=== PATIENT | female | born 1935 | race Caucasian/White ===

== ENCOUNTER 2018-03-25 11:07 | Emergency (ER) | payer MEDICARE, OTHER ==
[~2018-03-25] VITALS: Ht 160 cm; Wt 44.9 kg
--- NOTE | 2018-03-25 13:40 | Diagnostic Imaging Report ---
PROCEDURE:SACRUM \T\ COCCYX TECHNIQUE:AP and lateral images obtained INDICATION:Hip and tailbone pain, fall COMPARISON:None. FINDINGS: The bones are diffusely demineralized. There are pedicle screws and vertical stabilizing bars in the lower lumbar spine, incompletely imaged. The visualized portions extend from L3-S1. There are artificial disc spacers at L2-3, L3-4, and possibly L4-5. There is disc space narrowing at L5-S1. The visualized hardware is intact without lucency to suggest loosening. Sacroiliac joints and pubic symphysis are normal in morphology and patent. Visualized portions of the hips are intact and normally positioned. Lateral image of the sacrum demonstrates anterior cortical discontinuity of S3 and also the anterior border of the S5 suggestive of fracture. No callus formation to suggest healing. CONCLUSION: Fractures of the distal sacrum as described above. Postoperative changes of the lower lumbar spine as described above. Diffuse demineralization. Dictated by: Cecy Beckham M.D. on 03/25/2018 at 13:43 Electronically approved by: Cecy Beckham M.D. on 03/25/2018 at 13:43
--- NOTE | 2018-03-25 13:42 | Diagnostic Imaging Report ---
PROCEDURE:X-RAY PELVIS, AP VIEW COMPARISON:Sacrum x-rays obtained at the same time. INDICATIONS:BILATERAL HIP PAIN FINDINGS: The bones are diffusely demineralized. No diastases of the symphysis or sacroiliac joints. The hips are intact and normally positioned. The pubic rami are intact. Bilateral pedicle screws and vertical stabilizing bars in the lower lumbar spine are incompletely imaged. The hardware is intact. The fractures of the coccyx identified on dedicated imaging are poorly visualized on this exam. CONCLUSION: No fracture or dislocation on this single image. Fusion hardware in the lumbar spine as described above. Dictated by: Cecy Beckham M.D. on 03/25/2018 at 13:46 Electronically approved by: Cecy Beckham M.D. on 03/25/2018 at 13:46
== END 2018-03-25 15:56 | disposition home or self-care (01) ==
LOC: ER 11:07
DX: S32.10XA Unspecified fracture of sacrum, initial encounter for closed fracture (principal); W18.39XA Other fall on same level, initial encounter
CPT/HCPCS: 72170; 72220; 99284

== ENCOUNTER → 2019-09-18 | Day surgery (SDC) | payer MEDICARE, OTHER ==
[~2019-09-18] MED LIST: ASPIRIN81 MG PO; CAROSPIR25 MG/5 ML PO; CLONAZEPAM0.5 MG PO; HYOSCYAMINE 0.125 MG TAB ONE; METOPROLOL SUCC25 MG PO; MYRBETRIQ50 MG PO; PROPOFOL IV EMULSION 10 MG/ML 50 ML VIAL ONE; RANITIDINE HCL300 M1 PO; TYLENOL EXTRA500 MG PO
--- OUTSIDE RECORDS SUMMARY | 2019-09-18 07:27 | XMS REPORT ---
Author Author [facility] Address Unknown Phone Unavailable Care Team Providers Care Software Sales Representative Name Role Phone Donald CAMP Unavailable Unavailable Problems This patient has no known problems. Allergies, Adverse Reactions, Alerts This patient has no known allergies or adverse reactions. Medications This patient has no known medications. Results Test Description Test Time Test Comments Text Results Atomic Results Result Comments SACRUM COCCYX [place] [address] Patient Name: JAMES BETHEA MR #: [id number] : 1935 Age/Sex: 82/F Req #: [id number] Adm Physician: Ordered by: DONNELL CAMP MD Report #: [id number] Location: ER Room/Bed: Procedure: [id number] DX/SACRUM COCCYX Exam Date: 03/25/18 Exam Time: 1300 REPORT STATUS: Signed PROCEDURE: SACRUM T COCCYX TECHNIQUE: AP and lateral images obtained INDICATION: Hip and tailbone pain, fall COMPARISON: None. FINDINGS: The bones are diffusely demineralized. There are pedicle screws and yousif tical stabilizing bars in the lower lumbar spine, incompletely imaged. The visualized portions extend from L3-S1. There are artificial disc spacers at L2-3, L3-4, and possibly L4-5. There is disc space narrowing at L5-S1. The visualized hardware is intact without lucency to suggest loosening. Sacroiliac joints and pubic symphysis are normal in morphology and patent. Visualized portions of the hips are intact and normally positioned. Lateral image of the sacrum demonstrates anterior cortical discontinuity of S3 and also the anterior border of the S5 suggestive of fracture. No callus formation to suggest healing. CONCLUSION: Fractures of the distal sacrum as described above. Postoperative changes of the lower lumbar spine as described above. Diffuse demineralization. Dictated by: Sindhu Beckham M.D. on 03/25/2018 at 13:43 Electronically approved by: Sindhu Beckham M.D. on 03/25/2018 at 13:43 Dictated By: JORGE BECKHAM MD 1343 Transcribed By: JESSICA on 03/25/18 1343 COPY TO: DONNELL CAMP MD PELVIS AP 1-2 VIEWS [place] [address] Patient Name: JAMES BETHEA MR #: [id number] : 1935 Age/Sex: 82/F Req #: [id number] Adm Physician: Ordered by: DONNELL CAMP MD Report #: [id number] Location: ER Room/Bed: Procedure: [id number] DX/PELVIS AP 1-2 VIEWS Exam Date: 03/25/18 Exam Time: 1300 REPORT STATUS: Signed PROCEDURE: X-RAY PELVIS, AP VIEW COMPARISON: Sacrum x-rays obtained at the same time. INDICATIONS: BILATERAL HIP PAIN FINDINGS: The bones are diffusely demineralized. No diastases of the symphysis or sacroiliac joints. The hips are intact and normally positioned. The pubic rami are intact. Bilateral pedicle screws and vertical stabilizing bars in the lower lumbar spine are incompletely imaged. The hardware is intact. The fractures of the coccyx identified on dedicated imaging are poorly visualized on this exam. CONCLUSION: No fracture or dislocation on this single image. Fusion hardware in the lumbar spine as described above. Dictated by: Sindhu Beckham M.D. on 03/25/2018 at 13:46 Electronically approved by: Sindhu Beckham M.D. on 03/25/2018 at 13:46 Dictated By: SINDHU BECKHAM MD 1346 Transcribed By: JESSICA on 03/25/18 1346 COPY TO: DONNELL CAMP MD
[2019-09-18 08:18] LABS: BASOPHILS # (AUTO) 0.1 (0.0-0.1); BASOPHILS % 0.7 % (0.0-1.0); EOSINOPHILS # (AUTO) 0.3 (0.0-0.4); EOSINOPHILS % 3.4 % (0.0-6.0); HEMATOCRIT 38.3 % (34.2-44.1); HEMOGLOBIN 13.4 g/dL (12.0-16.0); LYMPHOCYTES # (AUTO) 1.7 (1.0-3.2); LYMPHOCYTES % 22.1 % (18.0-39.1); MEAN CORPUSCULAR HEMOGLOBIN 30.9 pg (28-32); MEAN CORPUSCULAR VOLUME 88.2 fL (81-99); MONOCYTES # (AUTO) 0.8 (0.2-0.8); MONOCYTES % 10.3 % (4.4-11.3); NEUTROPHILS # (AUTO) 4.9 (2.1-6.9); NEUTROPHILS % 63.2 % (38.7-80.0); PLATELET COUNT 533 x10e3/uL (140-360); RED BLOOD COUNT 4.34 x10e6/uL (3.6-5.1); RED CELL DISTRIBUTION WIDTH 13.2 % (11.7-14.4)
[2019-09-18 11:30] VITALS: BP 132/78
--- NOTE | 2019-09-18 12:35 | Operative Report ---
DATE OF PROCEDURE: 09/18/2019 SURGEON: Cole Mason MD PROCEDURE: Colonoscopy with the EGD scope with polypectomy and biopsies. INDICATIONS FOR PROCEDURE: Surveillance colonoscopy, personal history of colon polyps, intermittent diarrhea. MEDICATIONS: The patient was done under MAC, please see anesthesiologist's note. PROCEDURE IN DETAIL: With the patient in left lateral decubitus position, a flexible fiberoptic Olympus colonoscope was inserted into the rectum with ease and advanced to approximately 20 cm from the anal verge. It could not be advanced any further, as the sigmoid colon was sharply angulated and was subsequently withdrawn and an EGD scope was then introduced into the rectum and it traversed the sharply angulated segment with some difficulty and the scope was advanced all the way to the cecum. The scope was then withdrawn slowly and whatever was visualized the mucosa overlying the cecum, ascending, transverse, and descending grossly appeared to be within normal limits. There was no obvious obstructing or constricting lesions. Some diverticular disease was noted in the sigmoid colon. The sharply angulated segment was poorly visualized. There were some mild patchy inflammatory changes in the sigmoid and rectum, and biopsies were obtained. An approximately 4 mm sessile polyp was noted in the distal rectum that was removed per hot snare polypectomy. The scope was then retroflexed into the distal rectum and small internal hemorrhoids were noted, none of which was actively bleeding. The scope was then straightened out and it was subsequently withdrawn after securing an adequate stool specimen that was sent for the appropriate stool studies. The patient tolerated the procedure well. IMPRESSION: 1. Sigmoid colon sharply angulated and fixed, traversed with some difficulty only with the EGD scope. Exam overall suboptimal. No obvious obstructing or constricting lesions. 2. Diverticulosis. 3. Mild proctosigmoiditis. 4. Rectal polyp, hot snared. 5. Internal hemorrhoids, none actively bleeding. PLAN: Follow up histology. Follow up stool studies. Initiate Bentyl 10 mg 1 p.o. t.i.d. The patient will need an air contrast barium enema. Cole Mason MD [facility] [place] /[id number] cc: Jovon Key MD
[2019-09-18 13:50] LABS: C DIFFICILE TOXIN A&B AMP PROB NEGATIVE (NEGATIVE); WBC,FECAL (FECAL LACTOFERRIN) POSITIVE (NEGATIVE)
== END | disposition home or self-care (01) ==
LOC: OR 07:23
PROVIDERS: ATTEND Internal Medicine Gastroenterology
DX: Z12.11 Encounter for screening for malignant neoplasm of colon (principal); Z86.010 Personal history of colon polyps; R19.7 Diarrhea, unspecified; K57.30 Diverticulosis of large intestine without perforation or abscess without bleeding; K63.89 Other specified diseases of intestine; K62.1 Rectal polyp; K64.8 Other hemorrhoids; K56.609 Unspecified intestinal obstruction, unspecified as to partial versus complete obstruction; K21.9 Gastro-esophageal reflux disease without esophagitis; F41.9 Anxiety disorder, unspecified; Z01.810 Encounter for preprocedural cardiovascular examination; Z01.812 Encounter for preprocedural laboratory examination; D12.7 Benign neoplasm of rectosigmoid junction
CPT/HCPCS: 36415; 45380; 45385; 83630; 83993; 85025; 87045; 87177; 87328; 87493; 88305; 93005; J2704; 45378

== ENCOUNTER → 2019-11-20 | Outpatient (CLI) | payer MEDICARE, OTHER ==
[~2019-11-20] MED LIST changes: +CIPRO500 MG PO; +Calcium Carbonate PO; -HYOSCYAMINE 0.125 MG TAB ONE; +IOPAMIDOL 370 MG/ML 200 ML INFUS..BTL INJ ONE; +NITROFURANTOIN100 MG PO; -PROPOFOL IV EMULSION 10 MG/ML 50 ML VIAL ONE; +SODIUM CHLORIDE 0.9% 50ML 50 ML ONE
--- NOTE | 2019-11-20 09:38 | Diagnostic Imaging Report ---
#[id number] - USBRELIMLT ULTRASOUND OF THE LEFT BREAST : 11/17/2019 Comparison is made to exam dated: 11/17/2019 mammogram - [facility]. Real-time ultrasound was performed on the left breast. There is a 6 mm irregular mass in the left breast at 3 o'clock anterior depth. This irregular mass is hypoechoic. IMPRESSION: SUSPICIOUS OF MALIGNANCY - FOLLOW-UP RECOMMENDED The 6 mm irregular mass in the left breast is at a low suspicion for malignancy. An ultrasound guided biopsy is recommended. A phone call was made to the physician's office. The findings were discussed with the patient and her family member. The patient has been or will be contacted. KYLE CHAUDHARY M.D. ct/:11/17/2019 16:07:25 Kiss Setter Hand: GISELLA PHELAN RDTN, [facility] letter sent: Biopsy Required Ultrasound BI-RADS: 4a Suspicious abnormality - low suspicion for malignancy
--- NOTE | 2019-11-20 09:39 | Diagnostic Imaging Report ---
#[id number] - [id number] #BILATERAL DIGITAL DIAGNOSTIC MAMMOGRAM WITH CAD: 11/17/2019 No prior exams were available for comparison. Current study contains 7 films. The tissue of both breasts is heterogeneously dense. This may lower the sensitivity of mammography. Current study was also evaluated with a Computer Aided Detection (CAD) system. Numerous coarse benign appearing calcifications are noted bilaterally. There is a 6 mm mass in the left breast at 3 o'clock anterior depth. This correlates as palpated and with ultrasound findings. No other significant masses, calcifications, or other findings are seen in either breast. IMPRESSION: SUSPICIOUS OF MALIGNANCY See the report for ultrasound performed the same day for additional details. The 6 mm mass in the left breast is at a low suspicion for malignancy. An ultrasound guided biopsy is recommended. A phone call was made to the physician's office. The findings were discussed with the patient and her family member. The patient will be contacted by the Mammography Department to schedule this appointment. KYLE CHAUDHARY M.D. ct/:11/17/2019 16:05:59 Clerical Car Checker: Yudi MARSH)(Aayush), [facility] letter sent: Biopsy Required Mammogram BI-RADS: 4a Suspicious abnormality - low suspicion for malignancy
== END ==
LOC: MAMMO 05:00
PROVIDERS: ATTEND Family Medicine
DX: N63.20 Unspecified lump in the left breast, unspecified quadrant (principal)
CPT/HCPCS: 76642; 77066; Q9967

== ENCOUNTER → 2019-11-29 | Outpatient (CLI) | payer MEDICARE, OTHER ==
[~2019-11-29] MED LIST changes: -IOPAMIDOL 370 MG/ML 200 ML INFUS..BTL INJ ONE; -SODIUM CHLORIDE 0.9% 50ML 50 ML ONE
--- NOTE | 2019-11-30 10:43 | Diagnostic Imaging Report ---
THIS REPORT HAS BEEN AMENDED. #[id number] - BXBRADUSLT ULTRASOUND GUIDED BIOPSY LEFT BREAST WITH MARKING DEVICE INSERTED: 11/29/2019 PATIENT CONSENT: According to [facility] requirements, a time out was performed, correct site was localized and the patient was consented. Correlation is made to exams dated: 11/17/2019 mammogram and 11/17/2019 ultrasound - [facility]. An ultrasound guided biopsy using real-time ultrasound was performed for the 6 mm mass located in the left breast at 3 o'clock in the retroareolar region. This was described on the previous mammography report. The skin was prepped in the usual manner. Local anesthetic was administered to the access site. A small incision was made in the breast. A 14 gauge biopsy needle was placed adjacent to the abnormality under ultrasound guidance. Once the needle was documented to be in the correct location, four specimens were obtained using an Achieve automated firing device. A clip was inserted at the biopsy site. The specimens were sent to the laboratory for pathological analysis. IMPRESSION: ULTRASOUND GUIDED BIOPSY Ultrasound guided biopsy of the 6 mm mass in the left breast at 3 o'clock in the retroareolar region was successful. Waiting for pathology results. A final report will be issued when these become available. KYLE CHAUDHARY M.D. ct/:11/29/2019 16:35:24 Piggyback Clerk: GISELLA PHELAN [facility], [facility] [id number] AMENDMENT: 12/08/2019 KYLE CHAUDHARY M.D. Pathology report from the [facility] guided biopsy has become available. The report indicates: Invasive lobular carcinoma. Please refer to the full report, or consult the hospital pathologist, for additional details. Recommend surgical consultation. I discussed the results of the case with Mode Restrepo in Dr. Key's office at 14:25 on 12-08-2019.
--- NOTE | 2019-11-30 10:43 | Diagnostic Imaging Report ---
#[id number] - MGDXLT #UNILATERAL LEFT DIGITAL DIAGNOSTIC MAMMOGRAM POST-PROCEDURE IMAGING FOR MARKER PLACEMENT: 11/29/2019 Comparison is made to exams dated: 11/29/2019 ultrasound biopsy and 11/17/2019 mammogram - [facility]. Current study contains 2 films. The tissue of the left breast is heterogeneously dense. This may lower the sensitivity of mammography. A clip is noted in the left breast at the biopsy site. IMPRESSION: POST PROCEDURE MAMMOGRAM FOR MARKER PLACEMENT KYLE CHAUDHARY M.D. ct/:11/29/2019 16:36:14 Government Contracts Manager: Yudi Hernandez RT(R)(M), [facility] Mammogram BI-RADS: Post-procedure mammogram for marker placement
== END ==
LOC: US 13:56
PROVIDERS: ATTEND Family Medicine
DX: N63.20 Unspecified lump in the left breast, unspecified quadrant (principal)
CPT/HCPCS: 19083; 77065; 88305; 88342; A4648

== ENCOUNTER 2020-01-19 16:23 | Inpatient (IN) | payer MEDICARE, OTHER ==
[~2020-01-19] VITALS: Ht 160 cm; Wt 45.6 kg
[~2020-01-19 16:23] MED LIST changes: -CIPRO500 MG PO; -Calcium Carbonate PO; -NITROFURANTOIN100 MG PO
--- NOTE | 2020-01-19 17:11 | NUR ---
pt straight cath via aseptic technique per orders for ua; urine output approx 50 cc; ua collected and sent to lab
[2020-01-19 17:32] LABS: CLARITY,URINE CLEAR (CLEAR); COLOR,URINE YELLOW (YELLOW); LEUKOCYTE ESTERASE ,URINE NEGATIVE (NEGATIVE); NITRITE,URINE NEGATIVE (NEGATIVE); PROTEIN,URINE DIPSTICK 1+ (NEGATIVE)
[2020-01-19 17:33] LABS: BACTERIA,URINE RARE /HPF; BILIRUBIN,URINE NEGATIVE (NEGATIVE); EPITHELIAL CELLS,URINE FEW /LPF; KETONES,URINE 2+ (NEGATIVE); URINE UROBILINOGEN 0.2 mg/dL (0.2 - 1)
[2020-01-19 17:37] LABS: BASOPHILS # (AUTO) 0.1 (0.0-0.1); BASOPHILS % 0.4 % (0.0-1.0); EOSINOPHILS # (AUTO) 0.1 (0.0-0.4); EOSINOPHILS % 0.2 % (0.0-6.0); HEMATOCRIT 33.5 % (34.2-44.1); HEMOGLOBIN 11.3 g/dL (12.0-16.0); MEAN CORPUSCULAR HEMOGLOBIN 30.9 pg (28-32); MEAN CORPUSCULAR HGB CONC 33.7 g/dL (31-35); MEAN CORPUSCULAR VOLUME 91.5 fL (81-99); MONOCYTES # (AUTO) 2.8 (0.2-0.8); MONOCYTES % 8.1 % (4.4-11.3); NEUTROPHILS # (AUTO) 30.6 (2.1-6.9); NEUTROPHILS % 87.4 % (38.7-80.0); PLATELET COUNT 689 x10e3/uL (140-360); RED BLOOD COUNT 3.66 x10e6/uL (3.6-5.1); RED CELL DISTRIBUTION WIDTH 13.3 % (11.7-14.4)
--- NOTE | 2020-01-19 17:45 | Diagnostic Imaging Report ---
Examination: Single AP view of the chest. COMPARISON: None. INDICATION: Fever DISCUSSION: Lines/tubes: None. Lungs: Granulomatous change throughout the lungs. Hyperinflation. No consolidative pneumonia. Pleura: No pleural effusion or pneumothorax. Heart and mediastinum: The heart and the mediastinum are unremarkable. Bones and soft tissues: No acute bony abnormalities. IMPRESSION: No acute cardiopulmonary disease Signed by: Dr. Antoni Hook M.D. on 01/19/2020 5:41 PM
[2020-01-19 17:49] LABS: INR 1.09; PROTHROMBIN TIME 14.8 seconds (11.9-14.5)
[2020-01-19 17:50] LABS: PARTIAL THROMBOPLASTIN TIME 28.9 seconds (23.8-35.5)
[2020-01-19] MEDS ORDERED: PIPER-TAZ 3.375 GM 50 ML IV STA (17:51)
[2020-01-19 17:57] LABS: ALANINE AMINOTRANSFERASE 29 IU/L (0-55); ALBUMIN 3.3 g/dL (3.5-5.0); ALKALINE PHOSPHATASE 94 IU/L (40-150); BLOOD UREA NITROGEN 15 mg/dL (7-26); BUN/CREATININE RATIO 22 (6-25); CALCIUM 9.2 mg/dL (8.4-10.2); CARBON DIOXIDE 26 mmol/L (22-29); CHLORIDE 91 mmol/L (98-107); CREATINE KINASE 70 IU/L (29-168); CREATININE, SERUM 0.68 mg/dL (0.57-1.11); EST GLOMERULAR FILTRATION RATE > 60 ML/MIN (60-); GLUCOSE 121 mg/dL (74-118); MAGNESIUM 1.6 MG/DL (1.3-2.1); SODIUM 126 mmol/L (136-145)
[2020-01-19] MEDS ORDERED: AZITHROMYCIN 500MG/NS 250 ML 250 ML IV SCH ×2 (18:00→19:30)
[2020-01-19] MEDS ORDERED: ACETAMINOPHEN 325 MG TAB PO ONE ×2 (18:00)
[2020-01-19 18:12] LABS: INFLUENZAE A&B ANTIGEN (RAPID) NEGATIVE (NEGATIVE); STREPTOCOCCUS GRP A ANTIGEN NEGATIVE (NEGATIVE)
[2020-01-19] MEDS ORDERED: SODIUM CHLORIDE 0.9% 1000ML 1,000 ML IV SCH (19:15)
[2020-01-19] MEDS ORDERED: HYDRALAZINE HCL 20 MG/ML VIAL IV PRN (20:30)
[2020-01-19] MEDS ORDERED: ONDANSETRON HCL INJ 2MG/ML 2ML 2 MG/ML VIAL IV PRN (20:30)
--- NOTE | 2020-01-19 20:45 | NUR ---
PT ARRIVED BY STRETCHER FROM CT. PT IS AAOX3, RR EVEN AND NON-LABORED, ON ROOM AIR. NO S/SX OF DISTRESS NOTED. PT VERBALIZED FEELING MUCH BETTER SINCE HER ARRIVAL TO THE ER. TRANSFERRED PT TO HOSPITAL BED BY DRAW SHEET 3 PERSON TRANSFER. ORIENTED PT TO HOSPITAL ROOM, CALL LIGHT, PHONE, BED CONTROLS, LIGHTS, AND DROPLET ISOLATION. LEFT PT LAYING SEMI FOWLERS IN BED, BED IN LOW LOCKED POSITION, SIDE RAILS UPX2, CALL LIGHT AND PHONE WITHIN REACH.
--- NOTE | 2020-01-19 20:50 | Consultation ---
DATE OF CONSULTATION: 01/19/2020 Pulmonary Critical Care Consultation CHIEF COMPLAINT: Leukocytosis and fever. HISTORY OF PRESENT ILLNESS: The patient is an 84-year-old woman. In the late s, she had endometrial cancer that required surgery followed by radiation and chemotherapy. She also required a lumbar spine fusion about 10 years ago. She has some difficulty ambulating at baseline. She has some bladder atonia and performed self-catheterizations at home. She has a problem with recurrent urinary tract infections and took Macrobid about 2 weeks ago. She now describes intermittent fevers over the past 1-2 weeks. She has a nonproductive cough that is mild. She denies any dyspnea. She is not having any abdominal pain. She denies nausea or vomiting. PAST SURGICAL HISTORY: 1. Status post hysterectomy. 2. Status post lumbar spine fusion. PAST MEDICAL HISTORY: 1. History of endometrial cancer as noted above. 2. History of dystonic bladder. 3. History of stage I breast cancer that has not yet been treated. 4. Recurrent urinary tract infections. 5. Gastroesophageal reflux. ALLERGIES: THE PATIENT IS ALLERGIC TO OXYBUTYNIN. SOCIAL HISTORY: The patient lives at home. She has difficulty ambulating and getting out of her house. Dr. Key is her doctor and tends to her at home. She is not an active smoker. She is not an active drinker. FAMILY HISTORY: Family history is noncontributory. REVIEW OF SYSTEMS: Intermittent fevers over 1-2 weeks. No headache. No neck pain. She does have a mild cough, but no dyspnea. She has no chest pain. She is not having any nausea or vomiting. She does have some chronic weakness in her legs and difficulty walking. She has chronic urinary problems. PHYSICAL EXAMINATION: VITAL SIGNS: The patient is afebrile. The blood pressure is 111/51 and the pulse is 95. The T-max is 100.7. Respiratory rate is 20 and the saturation is 98% on room air. HEENT: Shows no facial swelling or erythema. CARDIAC: Reveals regular rate and rhythm with normal S1 and S2. LUNGS: Auscultation of lungs reveals clear breath sounds bilaterally. There is no wheezing. ABDOMEN: Soft, nontender. There is no rebound or guarding. EXTREMITIES: Show no leg edema or calf tenderness. There is no cyanosis or clubbing. SKIN: Shows no rashes. LABORATORY DATA: White blood cell count is 35 and hemoglobin is 11.3. The platelet count is 689. The BUN to creatinine ratio is normal. The sodium is 126 and the chloride is 91. RADIOGRAPHIC DATA: Chest x-ray shows no acute disease. Urinalysis shows only 6-10 white blood cells. IMPRESSION: 1. Leukocytosis and sepsis of unclear etiology. 2. Stage I breast cancer that is awaiting treatment. 3. Dysfunctional bladder, requiring self catheterization. 4. Recurrent urinary tract infections. PLAN: 1. The patient has been pancultured and will be started on broad-spectrum antibiotics. 2. CT scan of the chest. 3. Respiratory viral panel. 4. Intravenous fluids as needed. 5. Repeat blood counts in a.m. Marcus Garcia MD [facility]/MODL /[id number]
[2020-01-19 20:52] LABS: LYMPHOCYTES % (MANUAL) 2 % (19-48); MONOCYTES % (MANUAL) 7 % (3.4-9.0); NEUTROPHILS % (MANUAL) 91 % (40-74)
--- NOTE | 2020-01-19 20:55 | Diagnostic Imaging Report ---
EXAMINATION: CT scan of the chest without contrast. TECHNIQUE: Helical CT images of the chest were performed from the lung apices to the level of the adrenal glands. No intravenous contrast was administered Coronal and sagittal reformatted images were obtained. Dose modulation, iterative reconstruction, and/or weight based adjustment of the mA/kV was utilized to reduce the radiation dose to as low as reasonably achievable. COMPARISON: None. CLINICAL HISTORY:Cough, fever DISCUSSION: ABSENCE OF INTRAVENOUS CONTRAST DECREASES SENSITIVITY FOR DETECTION OF FOCAL LESIONS AND VASCULAR PATHOLOGY. LINES/TUBES: None. LUNGS AND AIRWAYS: Age-related interstitial thickening. No airspace consolidation or groundglass opacity. No concerning mass. Calcification of the airways. PLEURA: No pneumothorax or pleural effusions. HEART AND MEDIASTINUM: The thyroid gland is normal. The heart and pericardium are within normal limits. LYMPH NODES: There is no mediastinal, hilar or axillary lymphadenopathy. ABDOMEN: Limited contrast-enhanced views of the upper abdomen show no abnormality within the visualized liver, spleen, pancreas, or kidneys. The adrenal glands are normal. BONES AND SOFT TISSUES: Bone demineralization. Mild multilevel thoracic spondylosis. Lower lumbar fusion, which is partially visualized. Posttraumatic deformity of the proximal left humerus and arthropathy. IMPRESSION: No acute CT finding of the chest Signed by: Dr. Antoni Hook M.D. on 01/19/2020 8:51 PM
[2020-01-19 21:10] VITALS: BP 129/59
[2020-01-19 21:30] VITALS: BP 129/59
[2020-01-19] MEDS ORDERED: NITROFURANTOIN100 MG PO (23:29)
[2020-01-19] MEDS: CLONAZEPAM 0.5 MG TAB PO SCH (23:40)
[2020-01-19] MEDS: PIPER-TAZ 3.375 GM 50 ML IV SCH (23:40)
[2020-01-20] VITALS (8 sets, daily range): BP systolic 92–118; BP diastolic 47–58
--- NOTE | 2020-01-20 01:12 | NUR ---
APPLIED SCD'S TO BILATERAL LOWER EXTREMITIES.
[2020-01-20 01:27] LABS: CREATINE KINASE MB 0.7 ng/mL (0-5.0)
[2020-01-20] MEDS: PIPER-TAZ 3.375 GM 50 ML IV SCH ×4 (05:16→23:15)
[2020-01-20] MEDS: ACETAMINOPHEN 325 MG TAB PO PRN ×3 (05:16→23:15)
[2020-01-20 05:26] LABS: BASOPHILS # (AUTO) 0.1 (0.0-0.1); BASOPHILS % 0.3 % (0.0-1.0); HEMOGLOBIN 9.8 g/dL (12.0-16.0); LYMPHOCYTES # (AUTO) 0.8 (1.0-3.2); LYMPHOCYTES % 3.1 % (18.0-39.1); MEAN CORPUSCULAR HEMOGLOBIN 30.7 pg (28-32); MEAN CORPUSCULAR HGB CONC 33.8 g/dL (31-35); MEAN CORPUSCULAR VOLUME 90.9 fL (81-99); MONOCYTES # (AUTO) 2.3 (0.2-0.8); MONOCYTES % 8.4 % (4.4-11.3); NEUTROPHILS # (AUTO) 23.8 (2.1-6.9); NEUTROPHILS % 87.3 % (38.7-80.0); PLATELET COUNT 551 x10e3/uL (140-360); RED BLOOD COUNT 3.19 x10e6/uL (3.6-5.1); RED CELL DISTRIBUTION WIDTH 13.2 % (11.7-14.4)
[2020-01-20 05:44] LABS: ALANINE AMINOTRANSFERASE 29 IU/L (0-55); ALBUMIN 2.5 g/dL (3.5-5.0); ALBUMIN/GLOBULIN RATIO 0.8 (0.8-2.0); ALKALINE PHOSPHATASE 81 IU/L (40-150); ANION GAP 10.7 mmol/L (8-16); BLOOD UREA NITROGEN 14 mg/dL (7-26); BUN/CREATININE RATIO 21 (6-25); CALCIUM 7.9 mg/dL (8.4-10.2); CARBON DIOXIDE 23 mmol/L (22-29); CHLORIDE 95 mmol/L (98-107); CREATININE, SERUM 0.67 mg/dL (0.57-1.11); EST GLOMERULAR FILTRATION RATE > 60 ML/MIN (60-); GLUCOSE 146 mg/dL (74-118); MAGNESIUM 1.4 MG/DL (1.3-2.1); POTASSIUM 3.7 mmol/L (3.5-5.1); SODIUM 125 mmol/L (136-145)
[2020-01-20 06:00] LABS: THYROID STIMULATING HORMONE 0.588 uIU/mL (0.350-4.940)
[2020-01-20 06:32] LABS: CREATINE KINASE 121 IU/L (29-168)
--- NOTE | 2020-01-20 07:00 | NUR ---
REPORT RECEIVED PT IN STABLE CONDITION, DENIES PAIN AT THIS TIME, IVF INFUSING TO R AC, NO SS OF INFILTRATION NOTED, NO OTHER CO VOICED CALL LIGHT IN REACH WILL CONTINUE TO MONITOR
[2020-01-20 08:26] LABS: BAND NEUTROPHILS % (MANUAL) 1 %; MONOCYTES % (MANUAL) 10 % (3.4-9.0); NEUTROPHILS % (MANUAL) 89 % (40-74)
[2020-01-20 08:27] LABS: RBC MORPHOLOGY COMMENT NORMAL
[2020-01-20 08:28] LABS: PLATELET ESTIMATE MODERATELY INCREASED; PLATELET MORPHOLOGY COMMENT FEW GIANT
[2020-01-20] MEDS: (Mirabegron (Myrbetriq) 50 MG) PO SCH (09:00)
[2020-01-20] MEDS ORDERED: NON-FORMULARY MEDICATION (Ranitidine Hcl 300 MG) PO SCH (09:00)
[2020-01-20] MEDS: FAMOTIDINE 20 MG TAB PO SCH ×2 (09:24→17:11)
[2020-01-20] MEDS: ASPIRIN 81 MG CHEW TAB PO SCH (09:24)
--- NOTE | 2020-01-20 09:26 | Diagnostic Imaging Report ---
EXAMINATION: CHEST SINGLE (PORTABLE) INDICATION: ^PNEMONIA ^[id number] ^0800 ^Y COMPARISON: CT chest 01/19/2020 FINDINGS: AP view TUBES and LINES: None. LUNGS: Lungs are well inflated. Stable mild subsegmental atelectasis in both lung bases and few a scattered small nodules in the right lower lobe. Mild bilateral apical pleuroparenchymal scarring, unchanged. No new consolidations or pulmonary edema. PLEURA: No pleural effusion or pneumothorax. HEART AND MEDIASTINUM: The cardiomediastinal silhouette is unremarkable.. BONES AND SOFT TISSUES: Status post fixation of the upper lumbar spine. Diffuse posttraumatic deformity of the left humeral head. Soft tissues are unremarkable. UPPER ABDOMEN: No free air under the diaphragm. IMPRESSION: Stable bibasilar atelectasis and few scattered right lower lobe pulmonary nodules. No new consolidations or groundglass opacities. Signed by: Dr. Juana Lorenzana M.D. on 01/20/2020 9:22 AM
--- NOTE | 2020-01-20 12:02 | NUR ---
SPOKE WITH ALPESH IN SPEECH, PT IS NOT HAVING ANY DIFFICULTY SWALLOWING OR CHOKING/COUGHING EPISODE AFTER SHE EATS AT THIS TIME WILL MONITOR PT, IF HAVING DIFFICULTY WILL REQUEST MBS ON WEDNESDAY, HERNANDEZ OLIVEROS NOTIFIED.
[2020-01-20] MEDS: SODIUM CHLORIDE 1 GM TAB PO SCH ×2 (12:14→17:12)
--- NOTE | 2020-01-20 12:19 | NUR ---
SPOKE WITH ALEX FOR DR. OROPEZA ANSWERING SERVICE RE: CONSULT.
[2020-01-20] MEDS ORDERED: CEFTRIAXONE SOD 1 GM/NS 50 ML 50 ML IV SCH (12:30)
--- NOTE | 2020-01-20 12:31 | NUR ---
SPOKE WITH DR. ALEGRIA RE: CONSULT, STATES PT CAN FOLLOW UP IN OFFICE.
[2020-01-20] MEDS ORDERED: GUAIFENESIN/DEXTROMETHORPHAN LIQD 5 ML UDC PO PRN (13:30)
--- NOTE | 2020-01-20 13:52 | NUR ---
spoke with dr monk again, informed of pt wbc and follow up with uti, no further orders at this time
[2020-01-20 14:23] LABS: CREATINE KINASE 197 IU/L (29-168)
--- NOTE | 2020-01-20 14:28 | NUR ---
Pt is in isolation. MD requests RD to return on Wednesday for dietary consult.
--- NOTE | 2020-01-20 15:40 | NUR ---
Pt temp 101.5, medicated with prn meds
--- NOTE | 2020-01-20 17:07 | Progress Note ---
DATE: 01/20/2020 SUBJECTIVE: The patient feels better overall. She still has some cough. She had a fever of 101.8 last night, but is now afebrile. PHYSICAL EXAMINATION: VITAL SIGNS: The blood pressure is 94/47 and saturation is 97%. HEENT: Shows no facial swelling or erythema. CARDIAC: Reveals regular rate and rhythm with normal S1 and S2. LUNGS: Auscultation of lungs reveals clear breath sounds bilaterally. There is no wheezing. ABDOMEN: Soft and nontender. There is no rebound or guarding. EXTREMITIES: Shows no leg edema or calf tenderness. There is no cyanosis or clubbing. SKIN: Shows no rashes. LABORATORY DATA: White blood cell count is 27.2 and the hemoglobin is 9.8. The platelet count is 551. BUN to creatinine ratio is 14 to 0.67 and the sodium is 125. IMPRESSION: 1. Urinary tract infection with sepsis, present on admission. 2. Dysfunctional bladder, requiring self catheterization. 3. Stage I breast cancer. 4. Gastroesophageal reflux. PLAN: 1. Continue current antibiotics. 2. Await final culture results. 3. Continue to monitor blood counts and laboratory values. 4. The patient is not improving, consider CT scan of the abdomen and pelvis. MD KALINA Maldonado/SHAYLEE /[id number]
--- NOTE | 2020-01-20 17:40 | NUR ---
temperature rechecked 98.6
--- NOTE | 2020-01-20 18:18 | Consultation ---
DATE OF CONSULTATION: 01/20/2020 CHIEF COMPLAINT: The patient has sepsis, leukocytosis, UTI, pyelonephritis, possible pneumonia, this rule out COVID-19. HISTORY OF PRESENT ILLNESS: This patient who is an 84-year-old very pleasant female. The patient had a history of endometrial cancer surgery, which was done in 1989, had radiation chemotherapy. She also required spinal fusion 10 years ago. She does have problem with ambulating as a baseline. She also has some problem with the urine as a baseline. 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 The patient comes in with fever and chills. She does have underlying history of recurrent UTI. She is on Macrobid about two weeks ago for UTI, but she is coming with fever and chills. She stated when she first came she was having cough, although since admission I do not see any cough and no one noticed cough in her. The patient as currently lying in bed comfortably. There was concern for symptoms could represent early COVID-19 since her in the middle of outbreak. PAST MEDICAL HISTORY: Endometrial cancer and dystonic bladder, stage I breast cancer, recurrent UTI, and gastroesophageal reflux disease. PAST SURGICAL HISTORY: Hysterectomy and lumbar spine fusion. ALLERGIES: OXYBUTYNIN. SOCIAL HISTORY: There is no smoking, drug abuse, or alcohol abuse. FAMILY HISTORY: Otherwise unremarkable. REVIEW OF SYSTEMS: GENERAL: At the present time, she states she is feeling better since she came here. HEENT: There is no headache, visual changes, hearing changes. GI: There is no nausea. No vomiting. No diarrhea. CARDIAC: There is no arrhythmia. NEURO: No seizure activity. SKIN: There is no rash. GENITOURINARY: Although she denies any urgency, frequency at present time, but there was concern that she may the nurse noted that the urine looked turbulent. LABORATORY DATA: Reviewed. Her white count when she first came was 34.99, hemoglobin 11.3, her platelet of 689. Sodium 135, potassium 3.7, creatinine of 0.67. Her respiratory panel is pending. Her influenza is negative. Her group A is negative. COVID-19 was sent. Blood cultures are still pending. MEDICATION LIST: She is currently on Rocephin, azithromycin, and Zosyn. Her review of systems otherwise is as above. PHYSICAL EXAMINATION: GENERAL: She is currently alert, oriented, does not seem to be in acute distress. VITAL SIGNS: Stable. There is no fever at present time. Her T-max has been 101.8, heart rate of 106, respirations 17. HEENT: Normocephalic, not icteric. NECK: Supple. CHEST: Clear bilateral. HEART: S1-S2. No murmurs. ABDOMEN: Soft. Bowel sounds are present. EXTREMITIES: No edema. SKIN: No rash. IMPRESSION: Sepsis on admission concern pyelonephritis versus other. PLAN: Plan is to keep Zosyn. Await blood cultures and urine cultures. Recheck CBC. Recheck Chem panel. If no improvement in next 24-48 hours, we will get the CAT scan of abdomen and pelvis depending on her clinical progress. Other medical problems as above. Discussed with the patient and discussed with medical team. We will follow with you. MD JUAN Treviño/SHAYLEE /[id number]
--- NOTE | 2020-01-20 18:55 | NUR ---
walking rounds performed, received pt laying semi fowlers in bed, aaox3, rr even and non-labored, on room air. no s/sx of distress noted. left pt laying semi fowlers in bed, bed in low locked position, side rails upx2, call light and phone within reach.
--- NOTE | 2020-01-20 21:20 | NUR ---
APPLIED NONSKID SOCKS TO PATIENT. PT ASSISTED TO BEDSIDE COMMODE. PT HAD MOD FORMED BM. JUSTIN CARE AND CLIFTON CARE PERFORMED. PT ASSISTED BACK TO BED. APPLIED HEEL PROTECTORS TO BILATERAL HEELS AND ELEVATED BLE ON X2 PILLOWS. LEFT PT LAYING SEMI FOWLERS IN BED, BED IN LOW LOCKED POSITION, SIDE RAILS UPX2, CALL LIGHT AND PHONE WITHIN REACH.
[2020-01-20] MEDS: CLONAZEPAM 0.5 MG TAB PO SCH (21:25)
--- NOTE | 2020-01-20 23:15 | NUR ---
applied alternating air pressure pump to mattress for PUP.
[2020-01-21] VITALS (8 sets, daily range): BP systolic 93–129; BP diastolic 47–73
[2020-01-21] MEDS: PIPER-TAZ 3.375 GM 50 ML IV SCH ×3 (05:05→17:27)
--- NOTE | 2020-01-21 05:10 | NUR ---
blood drawn from (r) ac with butterfly needle for am labs. pressure and dressing applied. vials delivered to laboratory.
[2020-01-21 05:31] LABS: BASOPHILS # (AUTO) 0.1 (0.0-0.1); BASOPHILS % 0.7 % (0.0-1.0); EOSINOPHILS # (AUTO) 0.3 (0.0-0.4); EOSINOPHILS % 1.6 % (0.0-6.0); HEMATOCRIT 27.8 % (34.2-44.1); HEMOGLOBIN 9.3 g/dL (12.0-16.0); LYMPHOCYTES # (AUTO) 1.5 (1.0-3.2); LYMPHOCYTES % 8.7 % (18.0-39.1); MEAN CORPUSCULAR HEMOGLOBIN 30.7 pg (28-32); MEAN CORPUSCULAR HGB CONC 33.5 g/dL (31-35); MEAN CORPUSCULAR VOLUME 91.7 fL (81-99); MONOCYTES # (AUTO) 2.9 (0.2-0.8); MONOCYTES % 17.4 % (4.4-11.3); NEUTROPHILS % 70.9 % (38.7-80.0); PLATELET COUNT 529 x10e3/uL (140-360); RED BLOOD COUNT 3.03 x10e6/uL (3.6-5.1); RED CELL DISTRIBUTION WIDTH 13.4 % (11.7-14.4)
[2020-01-21 05:46] LABS: ANION GAP 8.6 mmol/L (8-16); BLOOD UREA NITROGEN 12 mg/dL (7-26); BUN/CREATININE RATIO 19 (6-25); CALCIUM 7.9 mg/dL (8.4-10.2); CARBON DIOXIDE 26 mmol/L (22-29); CHLORIDE 98 mmol/L (98-107); CREATININE, SERUM 0.64 mg/dL (0.57-1.11); EST GLOMERULAR FILTRATION RATE > 60 ML/MIN (60-); GLUCOSE 110 mg/dL (74-118); POTASSIUM 3.6 mmol/L (3.5-5.1); SODIUM 129 mmol/L (136-145)
[2020-01-21 06:00] LABS: ALANINE AMINOTRANSFERASE 25 IU/L (0-55); ALBUMIN 2.3 g/dL (3.5-5.0); ALBUMIN/GLOBULIN RATIO 0.8 (0.8-2.0); ALKALINE PHOSPHATASE 70 IU/L (40-150); ANION GAP 9.6 mmol/L (8-16); BLOOD UREA NITROGEN 12 mg/dL (7-26); BUN/CREATININE RATIO 19 (6-25); CALCIUM 7.9 mg/dL (8.4-10.2); CARBON DIOXIDE 25 mmol/L (22-29); CHLORIDE 97 mmol/L (98-107); CREATININE, SERUM 0.64 mg/dL (0.57-1.11); EST GLOMERULAR FILTRATION RATE > 60 ML/MIN (60-); GLUCOSE 109 mg/dL (74-118); POTASSIUM 3.6 mmol/L (3.5-5.1); SODIUM 128 mmol/L (136-145)
--- NOTE | 2020-01-21 07:00 | NUR ---
received pt in stable condition, denies pain at this time, l ac 18g no ss of infiltration noted, updated on poc vocied understanding, call light in reach will continue to monitor
[2020-01-21] MEDS: ASPIRIN 81 MG CHEW TAB PO SCH (07:53)
[2020-01-21] MEDS: (Mirabegron (Myrbetriq) 50 MG) PO SCH (07:53)
[2020-01-21] MEDS: FAMOTIDINE 20 MG TAB PO SCH ×2 (07:53→16:37)
--- NOTE | 2020-01-21 11:05 | Progress Note ---
DATE: 01/21/2020 SUBJECTIVE: The patient is afebrile. She did have a T-max of 100.2. She has no cough or dyspnea. PHYSICAL EXAMINATION: VITAL SIGNS: Stable. The blood pressure is 95/97, saturation is 97%. HEENT: Shows no facial swelling or erythema. CARDIAC: Reveals regular rate and rhythm with normal S1 and S2. There are no murmurs or rubs. LUNGS: Auscultation of lungs reveals rhonchorous breath sounds bilaterally. There is no wheezing. ABDOMEN: Soft, nontender. There is no rebound or guarding. EXTREMITIES: Show no leg edema or calf tenderness. LABORATORY DATA: White blood cell count is 16.9 and hemoglobin is 9.3. The platelet count is 529. The BUN to creatinine ratio is normal. The sodium is 128. IMPRESSION: 1. Urinary tract infection with sepsis present on admission. 2. Dysfunctional bladder, requiring self catheterization. 3. Stage I breast cancer. 4. Gastroesophageal reflux. PLAN: 1. Continue current antibiotics. 2. Continue nutritional support. 3. Out of bed as tolerated. 4. Continue to monitor white blood cell count. 5. Await viral serologies tomorrow. Marcus Garcia MD LM/SHAYLEE /[id number]
--- NOTE | 2020-01-21 12:15 | NUR ---
up to bedside commode with assistance, tolerated well,
--- NOTE | 2020-01-21 12:45 | NUR ---
back to bed with assistance, linens and gown changed, call light in reach will continue to monitor
--- NOTE | 2020-01-21 16:58 | NUR ---
pt states she feels warm temperature checked 98.3, will continue to monitor
--- NOTE | 2020-01-21 18:50 | NUR ---
WALKING ROUNDS PERFORMED, RECEIVED PT LAYING SEMI FOWLERS IN BED, AAOX3, RR EVEN AND NON-LABORED, ON ROOM AIR. NO S/SX OF DISTRESS NOTED. SCD TO BILATERAL LOWER EXTREMITIES. LEFT PT LAYING SEMI FOWLERS IN BED, BED IN LOW LOCKED POSITION, SIDE RAILS UP X2, CALL LIGHT AND PHONE WITHIN REACH.
--- NOTE | 2020-01-21 18:52 | NUR ---
report given to oncoming RN,
--- NOTE | 2020-01-21 19:56 | NUR ---
SPOKE WITH MD ALDRICH CONCERNING PT RESULTS FOR COVID 19, DISCONTINUED DROPLET ISOLATION AND OK TO TRANSFER TO ROOM 202.
--- NOTE | 2020-01-21 20:00 | NUR ---
ATTEMPT TO CALL REPORT TO Niranjan MEHTA RN BUT NURSE WAS NOT AVAILABLE. WAITING FOR CALLBACK.
--- NOTE | 2020-01-21 20:07 | NUR ---
SPOKE WITH FREDERIC PROCTOR TO TRANSFER PT TO OTHER FLOOR. MAINTAIN DROPLET TILL REMAINING TESTS RETURN.
--- NOTE | 2020-01-21 20:12 | NUR ---
REPORT CALLED TO Niranjan PENA RN. FOR PATIENT TRANSFERRING TO ROOM 202.
--- NOTE | 2020-01-21 20:21 | NUR ---
PT TRANSFERRED BY HOSPITAL BED TO ROOM 202. PT IN STABLE CONDITION.
--- NOTE | 2020-01-21 20:42 | NUR ---
Patient transferred from OBS via bed. AAO x 3. Patient had no complaints of pain. Respirations even and non-labored. Calle catheter draining pale clear yellow urine. Fall precautions implemented. Patient instructed to call for assistance when needed. Call light within reach.
[2020-01-21] MEDS: CLONAZEPAM 0.5 MG TAB PO SCH (21:11)
[2020-01-22 00:10] VITALS: BP 119/59
[2020-01-22] MEDS: PIPER-TAZ 3.375 GM 50 ML IV SCH ×3 (00:22→12:00)
[2020-01-22] MEDS ORDERED: SODIUM CHLORIDE 0.9% 250ML 250 ML ONE (00:32)
[2020-01-22 04:08] VITALS: BP 136/63
[2020-01-22 05:09] LABS: BASOPHILS # (AUTO) 0.1 (0.0-0.1); BASOPHILS % 1.1 % (0.0-1.0); EOSINOPHILS # (AUTO) 0.6 (0.0-0.4); EOSINOPHILS % 5.6 % (0.0-6.0); HEMATOCRIT 28.6 % (34.2-44.1); HEMOGLOBIN 9.3 g/dL (12.0-16.0); LYMPHOCYTES # (AUTO) 1.8 (1.0-3.2); LYMPHOCYTES % 16.1 % (18.0-39.1); MEAN CORPUSCULAR HGB CONC 32.5 g/dL (31-35); MEAN CORPUSCULAR VOLUME 92.3 fL (81-99); MONOCYTES # (AUTO) 1.8 (0.2-0.8); MONOCYTES % 16.4 % (4.4-11.3); NEUTROPHILS # (AUTO) 6.6 (2.1-6.9); NEUTROPHILS % 60.3 % (38.7-80.0); PLATELET COUNT 547 x10e3/uL (140-360); RED CELL DISTRIBUTION WIDTH 13.3 % (11.7-14.4)
[2020-01-22 06:00] LABS: ALANINE AMINOTRANSFERASE 35 IU/L (0-55); ALBUMIN 2.2 g/dL (3.5-5.0); ALBUMIN/GLOBULIN RATIO 0.8 (0.8-2.0); ALKALINE PHOSPHATASE 68 IU/L (40-150); ANION GAP 8.8 mmol/L (8-16); BLOOD UREA NITROGEN 10 mg/dL (7-26); BUN/CREATININE RATIO 16 (6-25); CALCIUM 7.8 mg/dL (8.4-10.2); CARBON DIOXIDE 26 mmol/L (22-29); CHLORIDE 99 mmol/L (98-107); CREATININE, SERUM 0.63 mg/dL (0.57-1.11); EST GLOMERULAR FILTRATION RATE > 60 ML/MIN (60-); GLUCOSE 106 mg/dL (74-118); POTASSIUM 3.8 mmol/L (3.5-5.1); SODIUM 130 mmol/L (136-145)
--- NOTE | 2020-01-22 07:00 | NUR ---
Patient resting comfortably. No acute distress noted. Shift report given to oncoming nurse.
--- NOTE | 2020-01-22 07:05 | NUR ---
RCD PT AT BED PT IS ALERT AND ORIENTED IV PATENT BED LOW AND LOCKED CALL LIGHT IN REACH
[2020-01-22] MEDS: FAMOTIDINE 20 MG TAB PO SCH (07:30)
[2020-01-22 08:52] VITALS: BP 123/57
[2020-01-22] MEDS ORDERED: OYST-CAL-D 500MG TABLET PO SCH (09:00)
[2020-01-22] MEDS: ASPIRIN 81 MG CHEW TAB PO SCH (09:00)
[2020-01-22] MEDS: (Mirabegron (Myrbetriq) 50 MG) PO SCH (09:00)
[2020-01-22 09:03] LABS: EOSINOPHILS % (MANUAL) 3 % (0-7); LYMPHOCYTES % (MANUAL) 14 % (19-48); MONOCYTES % (MANUAL) 15 % (3.4-9.0); NEUTROPHILS % (MANUAL) 68 % (40-74)
[2020-01-22 09:04] LABS: PLATELET ESTIMATE SLIGHTLY INCREASED; PLATELET MORPHOLOGY COMMENT NORMAL; RBC MORPHOLOGY COMMENT NORMAL
[2020-01-22 09:11] VITALS: BP 123/57
[2020-01-22] MEDS ORDERED: Calcium Carbonate PO (10:20)
[2020-01-22] MEDS ORDERED: ONDANSETRON HCL 4 MG ORAL DISINTEGRATING TAB PO PRN (11:30)
[2020-01-22 12:20] VITALS: BP 133/66
--- NOTE | 2020-01-22 12:52 | NUR ---
[id number] late entery 01/01/2020
--- NOTE | 2020-01-22 12:55 | NUR ---
CM spoke to pt over the phone (pt in isolation) regarding home health. Pt states she was previously with [facility] and would like to resume services with them. IMM letter discussed with pt. She verbalized understanding. Informed pt that copy with be given to CLEO Santizo to give to her. Choice letter placed in front of chart. Signed IMM placed in chart. Home health information was printed out and given to CLEO Santizo to given to pt, along with IMM letter and [facility]'s business card. Referral was faxed to Deepa at [phone] / P [phone]. [facility] called and spoke with [place] [facility] [place] they received clinicals.
--- NOTE | 2020-01-22 13:01 | NUR ---
Received call back from Lacy at [facility] [place]. Pt is approved. She will have pt scheduled to be seen tomorrow.
--- NOTE | 2020-01-22 13:10 | NUR ---
DC CLIFTON BY ORDER 200 ML URINE IN THE BAG
[2020-01-22] MEDS ORDERED: CIPRO500 MG PO (13:13)
--- NOTE | 2020-01-22 13:23 | NUR ---
Nutrition Screen Note RD Recommendation for Physician: -Consider 2 gm Na diet per MD. Plan of Care: RD following, monitoring for tolerance and adequacy. Educational handout given. Ensure Enlive BID. Nutrition reason for involvement: (MD Consult-low Na education, underweight) Primary Diagnose(s): PNA PMH: 1. History of endometrial cancer as noted above. 2. History of dystonic bladder. 3. History of stage I breast cancer that has not yet been treated. 4. Recurrent urinary tract infections. 5. Gastroesophageal reflux. Ht: 63 in Wt: 100 lb BMI: 17.8 kg/m2 IBW:[address] Assessment: (01/21) 84 YOF admitted for PNA with PMH listed above. Physical visit has been deferred d/t the [facility] ID policy. Attempted to call patient, no answer. Also asked nurse regarding phone, she reported she was unsure if there was a phone in the room. Provided the pt with a low Na educational handout in her chart d/t consult from [employer] stated to give low Na diet education. Could not find recent past weights in EMR. Will recommend ONS for now d/t the MD reporting the pt is underweight. Pt has been consuming 50-100% of her meals per FS. Chart reviewed. Labs and meds reviewed. Will continue to monitor. Current Diet: regular diet Malnutrition Evaluation (01/21) The patient does not meet criteria for a specified degree of malnutrition at this time. Will re-evaluate at follow-up as appropriate. Energy intake: -unable to assess Weight loss: -unable to assess Fat loss: unable to evaluate Muscle loss: unable to evaluate Diet Education Needs Assessment: Diet education indicated, educational handout provided. Diet Adequacy: Meeting calorie needs, Meeting protein needs Learner(s): pt Barriers: pt is in an isolation room, attempted phone call (no answer) Cultural/Language Modifications: none Readiness: N/A Method: handout Topics:Low Na education Understanding/Compliance: N/A Nutrition Care Level: low Signed: Carmel Mahan RD, LD
--- NOTE | 2020-01-22 14:15 | Progress Note ---
DATE: 01/22/2020 SUBJECTIVE: Ms. Upton is doing well. There is no new complaint. REVIEW OF SYSTEMS: At the present time, HEENT: Negative. PULMONARY: Negative. CARDIAC: Negative. PHYSICAL EXAMINATION: GENERAL: She is currently alert, oriented, does not seem in acute distress. VITAL SIGNS: Stable, currently afebrile. HEENT: Not icteric. NECK: Supple. CHEST: Clear. HEART: S1-S2. No murmurs. ABDOMEN: Soft. Bowel sounds present. No tenderness. EXTREMITIES: No edema. SKIN: No rash. LABORATORY DATA: She is growing gram-negative. White count down to 16.9, hemoglobin 9.3. Her blood cultures are negative so far. IMPRESSION: Sepsis on admission, urinary tract infection, getting better. Can switch to oral antibiotic once we get sensitivity. We will follow. Continue supportive care. MD JUAN Treviño/SHAYLEE /[id number]
--- NOTE | 2020-01-22 14:39 | NUR ---
PT WENT HOME IN SAFE CONDITION WITH HER COMMUNICABLE DISEASE SPECIALIST
--- NOTE | 2020-01-22 15:15 | Progress Note ---
DATE: 01/22/2020 SUBJECTIVE: The patient was transferred out of isolation yesterday. Coronavirus serology was negative. Urine is growing Pseudomonas. Her white blood cell count is improved. PHYSICAL EXAMINATION: VITAL SIGNS: The patient is afebrile. The vital signs are stable. HEENT: Shows no facial swelling or erythema. LYMPHATIC: Shows no submandibular, cervical or supraclavicular adenopathy. CARDIAC: Reveals regular rate and rhythm with normal S1 and S2. There are no murmurs or rubs. LUNGS: Auscultation of lungs shows clear breath sounds bilaterally. There is no wheezing. ABDOMEN: Soft, nontender. There is no rebound or guarding. EXTREMITIES: Show no leg edema or calf tenderness. IMPRESSION: 1. Urinary tract infection with sepsis, present on admission. 2. Dysfunctional bladder. 3. Stage I breast cancer. 4. Gastroesophageal reflux. PLAN: 1. The patient is switched to oral antibiotics and will be discharged home. 2. Continue urology care. 3. The patient to follow up with General Surgery and Oncology as an outpatient. Marcus Garcia MD [facility]/MODL /[id number]
--- NOTE | 2020-01-23 20:31 | Discharge Summary ---
ADMISSION DIAGNOSES: 1. Urinary tract infection with sepsis, present on admission. 2. Hyponatremia. 3. Bladder atonia/overactive bladder. 4. Underweight with a BMI of 17.8. DISCHARGE DIAGNOSES: 1. Urinary tract infection with sepsis, present on admission. 2. Hyponatremia. 3. Bladder atonia/overactive bladder. 4. Underweight with a BMI of 17.8. PAST MEDICAL HISTORY: Thin, endometrial and breast cancer, bladder atonia/overactive bladder, GERD, frequent UTIs with self-catheterization. PAST SURGICAL HISTORY: Hysterectomy, T12-S1 fusion. FAMILY HISTORY: The patient's mom had a stroke. The patient's sister had diabetes. The patient's dad had cancer. SOCIAL HISTORY: Noncontributory. HOSPITAL COURSE: An 84-year-old female admits with complaints of intermittent fever for 2 weeks. She was treated with an unknown antibiotic about 3 weeks ago before the fever started. She then began Macrobid last and continued to have a fever of up to 103.1 last night. She self-catheterizes due to bladder atonia. On admission, the patient was started on Rocephin. Urology was consulted as well as Infectious Disease. Chest x-ray was negative. CT of the chest was done as the patient had contact with an employee who came back positive for COVID-19. CT of the chest showed no acute finding. Throat culture was negative. Blood culture was negative. Urine culture came back positive for gram-negative bacillus. COVID-19 negative. Flu negative. Group A strep negative. The patient will discharge home with 2 weeks of Cipro per Infectious Disease recommendation. She will continue physical therapy with Home Health. She uses the wheelchair at baseline. She will follow up with primary care in 1 to 2 weeks. The patient understands discharge instructions and agrees to plan. Vital signs stable. The patient is afebrile. Dictated by Dodie Jimenez NP Tate Aponte MD [facility]/MODL /[id number]
== END 2020-01-22 14:39 | disposition home or self-care (01) | DRG 698 ==
LOC: ER 16:23 → ERHOLD 19:37 → IMCU 20:53 → MED/SURG2 01-21 20:33
PROVIDERS: ADMIT Internal Medicine; ATTEND Internal Medicine
DX: T83.518A Infection and inflammatory reaction due to other urinary catheter, initial encounter (principal); A41.9 Sepsis, unspecified organism; N30.00 Acute cystitis without hematuria; E87.1 Hypo-osmolality and hyponatremia; Z68.1 Body mass index [BMI] 19.9 or less, adult; N31.2 Flaccid neuropathic bladder, not elsewhere classified; K21.9 Gastro-esophageal reflux disease without esophagitis; C50.919 Malignant neoplasm of unspecified site of unspecified female breast; B96.5 Pseudomonas (aeruginosa) (mallei) (pseudomallei) as the cause of diseases classified elsewhere; R63.6 Underweight; N32.81 Overactive bladder; Z03.818 Encounter for observation for suspected exposure to other biological agents ruled out; Z85.89 Personal history of malignant neoplasm of other organs and systems; Z20.828 Contact with and (suspected) exposure to other viral communicable diseases
CPT/HCPCS: 36415; 51700; 71045; 71250; 80048; 80053; 81001; 82550; 82553; 83036; 83518; 83605; 83735; 83880; 84443; 84484; 85025; 85610; 85730; 87040; 87070; 87086; 87186; 87400; 87633; 87635; 93005; 99251; 99285; J0360; J0456; J0696; J2405; J2543; J7030; J7050

== ENCOUNTER 2020-05-27 16:42 | Inpatient (IN) | payer MEDICARE, OTHER ==
[~2020-05-27] VITALS: Ht 160 cm; Wt 49.2 kg
[~2020-05-27 16:42] MED LIST changes: +CIPRO500 MG PO; +Calcium Carbonate PO; +NITROFURANTOIN100 MG PO
--- OUTSIDE RECORDS SUMMARY | 2020-05-27 17:19 | XMS REPORT | Clinical Summary ---
Author Author [facility] Address Unknown Phone Unavailable Care Team Providers Care Materials Mgmt Tech Name Role Phone PCP Unavailable Allergies Not on File Medications Not on file Active Problems Not on file Social History Date Tobacco Use Types Packs/Day Years Used Never Assessed Sex Assigned at Date Recorded Not on file Industry Job Start Date Occupation Not on file Not on file Not on file Travel End Travel History Travel Start No recent travel history available. Last Filed Vital Signs Not on file Plan of Treatment Not on file Results Not on fileafter 05/27/2019
--- OUTSIDE RECORDS SUMMARY | 2020-05-27 17:20 | XMS REPORT | Continuity of Care Document ---
Author Author [facility] t Organization [facility] Address [address] [place] [address] [place] [phone] Phone Unavailable Care Team Providers Care Basket Sorter Name Role Phone GEORGE MANZANO, Dylan MCKEON PCP DIANE ALDRICH Attjen Unavailable Dylan KEY Attphys Unavailable Donald CAMP Attphys Unavailable DIANE ALDRICH Admjen Unavailable Payers Payer Name Policy Type Policy Number Effective Date Expiration Date S abdulaziz [facility] [id number] 2019 00:00:00 [facility] Medicare A & B [id number] 2002 00:00:00 [facility] Problems This patient has no known problems. Allergies, Adverse Reactions, Alerts Allergy Name Allergy Type Status Severity Reaction(s) Onset Date Inacti ve Date Treating Clinician Comments Source No Known Allergies DA Active U 2020-03-26 00:00:00 [facility] Oxybutynin Allergy to Substance Active Mild 2018-03-25 00:00:00 [facility] Social History Social Habit Start Date Stop Date Quantity Comments Source Sex Assigned At [facility] Medications Ordered Medication Name Filled Medication Name Start Date Stop Da te Current Medication? Ordering Clinician Indication Dosage Frequency Signature (SIG) Comments Components Source Calcium Carbonate 500 Mg Tab Calcium Carbonate 500 Mg Tab 2019-12-26 0 00:00:00 Yes Dodie Looney [place] [employer] 500 Daily [facility] Acetaminophen (Tylenol Extra Strength) 500 Mg Tablet A cetaminophen (Tylenol Extra Strength) 500 Mg Tablet Yes 500 Three Ti mes A Day [facility] Aspirin 81 Mg Tab.chew Aspirin 81 Mg Tab.chew Yes 81 Daily [facility] Ciprofloxacin Hcl (Cipro) 500 Mg Tablet Ciprofloxacin Hcl (C ipro) 500 Mg Tablet Yes 500 Every 12 Hours [facility] Clonazepam 0.5 Mg Tablet Clonazepam 0.5 Mg Tablet Yes .25 Bedtime [facility] Metoprolol Succinate 25 Mg Tab.er.24h Metoprolol Succinate 25 Mg Ta b.er.24h Yes 12.5 Bedtime [facility] Mirabegron (Myrbetriq) 50 Mg Tab.er.24h Mirabegron (Myrbetri q) 50 Mg Tab.er.24h Yes 50 Daily [facility] Nitrofurantoin Macrocrystal (Nitrofurantoin) 100 Mg Ca psule Nitrofurantoin Macrocrystal (Nitrofurantoin) 100 Mg Capsule Yes 100 Twice Daily Before Meals [facility] Ranitidine Hcl 300 Mg Capsule Ranitidine Hcl 300 Mg Capsule Yes 300 Daily [facility] Spironolactone (Carospir) 25 Mg/5 Ml Oral.susp Spirono lactone (Carospir) 25 Mg/5 Ml Oral.susp Yes 25 Daily [facility] Procedures Procedure Date / Time Performed Performing Clinician [facility] e Computed tomography of chest without contrast 2020-01-19 00: 00:00 BRENT RINCON [facility] Bx breast add lesion US imag 2019-11-29 00:00:00 JOVON KEY [facility] Limited ultrasound of left breast 2019-11-17 00:00:00 JOVON KEY [facility] COLONOSCOPY AND BIOPSY 2019-09-18 00:00:00 STACIE SIGALA [facility] COLONOSCOPY W/LESION REMOVAL 2019-09-18 00:00:00 STACIE SIGALA [facility] Encounters Start Date/Time End Date/Time Encounter Type [facility] Encounter ID Source 2020-01-19 19:37:00 2020-01-22 14:39:00 Discharged Inpatient 1 DIANE ALDRICH [facility] [id number] [facility] 2019-11-29 13:56:00 2019-11-29 13:56:00 Registered Clinic 3 GEORGE JOVON [facility] [id number] [facility] 2019-11-20 05:00:00 2019-11-20 05:00:00 Registered Clinic 3 GEORGE, JOVON [facility] [id number] [facility] 2019-09-18 07:23:00 2019-09-18 07:23:00 Registered Surgical Day Care [facility] [id number] [facility] 2018-03-25 11:07:00 2018-03-25 15:56:00 Departed Emergency Room 1 DONNELL CAMP [facility] [id number] [facility] Results Test Description Test Time Test Comments Results Result Comments Source SURGICAL SPECIMENS 2020-04-24 15:35:00 RUN DATE: 04/24/20 [facility] *LIVE* PAGE 1 RUN TIME: 1535 Specimen Inquiry RUN USER: INTERFACE PATIENT: JAMES BETHEA LOC: [place] U #: [id number] AGE/SX: 84/F ROOM: RE04/18/20REG DR: Xavi Aviles MD : 37 BED: DIS: STATUS: RUIZ [facility] TLOC: SPEC #: [id number] RECD: 04/19/20 STATUS: JANETT LIMON #: [id number] SHASHANK: 04/19/20 [facility] DR: Xavi Aviles MD ENTERED: 04/24/20 SP TYPE: SURG SPEC OTHR DR: Jovon Key Jr, MD ORDERED: GM LEVEL 4 CODES: [id number] - BREAST, NOS COPIES TO: Xavi Aivles MD [address] [place] [address] [address] [place] [address] Jovon Key Jr, MD [address] [facility] [address] [place] [id number] PROCEDURES: GM LEVEL 4 (Incomplete) TISSUES: 1. BREAST, NOS - Breast, left, lumpectomy specimen, excis 2. BREAST, NOS - Breast, left, superior margin, excision 3. BREAST, NOS - Breast, left, medial margin, excision 4. BREAST, NOS - Breast, left, inferior margin, excision FINAL DIAGNOSIS Breast, left, lumpectomy specimen, superior, medial and inferior margins, excision: Infiltrating lobular carcinoma, Irwin grade 1, 1.6 cm, with lymphovascular invasion; final margins free of tumor. GROSS AND MICROSCOPIC GROSS EXAMINATION: Received and labeled left breast lumpectomy is a breast excisional biopsy specimen that measures 2.4 x 2.3 x 1.3 cm with attached segment of skin measuring 1.4 x 0.6 cm. Orientation is provided with the specimen. The surgical margins are inked as follows: superior blue; inferior green; medial red; lateral yellow; deep black, and anterior orange. The specimen is bread loafed and reveals arboleda-white and yellow soft tissue. Entirely submitted (A) (B). Specimen #2, left the breast margin superior is one segment of campos-white and yellow soft tissue measuring 2.6 x 1.1 x 0.7 cm. The new margin is inked and the specimen is submitted entirely as (C). CONTINUED ON NEXT PAGE RUN DATE: 04/24/20 [facility] *LIVE* PAGE 2 RUN TIME: 1535 Specimen Inquiry RUN USER: INTERFACE SPEC #: [id number] PATIENT: JAMES BETHEA #[id number] (Continued) GROSS AND MICROSCOPIC (Continued) Specimen #3, left breast margin, medial is one segment of campos-white and yellow soft tissue measuring 2.2 x 1.4 x 0.5 cm. The new margin is inked and is submitted entirely as (D). Specimen #4, left breast margin inferior is one segment of yellow soft tissue measuring 2.4 x 1.3 x 0.6 cm. The new margin is inked and is submitted entirely as (E). MICROSCOPIC EXAMINATION: Specimen #1 reveals infiltrating lobular carcinoma with extension to inferior margin. The tumor is close to posterior, anterior margins (0.1 cm). Changes consistent with prior biopsy site are present. The epidermis and dermis appears free of tumor. Specimen #2 shows fibrocystic changes and chronic inflammation. No ADH, DCIS, LCIS, or invasive carcinoma is identified. Specimen #3, shows fibrocystic changes, and dystrophic calcifications. No ADH, DCIS, LCIS, or invasive carcinoma is identified. Specimen #4, shows fibrocystic changes. No ADH, DCIS, LCIS, or invasive carcinoma is identified. POST-OP DIAGNOSIS Left breast cancer PRE-OP DIAGNOSIS Left breast cancer REVIEWED BY: SYNOPTIC REPORT *Procedure, laterality: Wire-guided excision, left. *Lymph node Sampling: No. Tumor site(s): Not specified. *Tumor Size (invasive): 1.6 cm. *Histologic Type: Invasive lobular carcinoma. *Histologic grade: Irwin Grade: I Glandular Diff: Minimal Nuclear Pleomorphism: Minimal. Mitotic Rate: Less than 3 *Tumor Focality: Focal. *DCIS: Not present. LCIS: Not identified. *Macro/microscopic extent: Skin/Nipple/Skeletal Muscle: N/A *Margins (invasive): CONTINUED ON NEXT PAGE RUN DATE: 04/24/20 [facility] *LIVE* PAGE 3 RUN TIME: 1535 Specimen Inquiry RUN USER: INTERFACE SPEC #: [id number] PATIENT: JAMES BETHEA #[id number] (Continued)-- SYNOPTIC REPORT (Continued) Margins (DCIS): Lymphovascular invasion: Identified. Dermal Lymph-vascular invasion: Not identified. Microcalcification: Identified. *Lymph Nodes: NA. Treatment effect: N/A *TNM [id number] Tumor block(s): (A) (B). Signed SIGNATURE ON FILE Adiel Le MD 04/24/20 1535 END OF REPORT Novel Coronavirus 2019 Inhouse 2020-04-17 14:32:00 Test Item Novel Coronavirus 2019 Inhouse (test code = COVNONPUI) Negative Negative Novel Coronavirus 2019 [id number] 23:26:00* Test Item Value Reference Range Interpretation Comments Novel Coronavirus 2018 Inhouse (test code = COVNONPUI) Negative Negative - XR CHEST 2 [id number] 10:52:00 FAX: Xavi Hill MD [phone] [place]: St: PRE FAX: Jovon Metcalf Jr [phone] Name: LAKEJAMES PATSY [facility] : 1935 Age/S: 84/F [address] [place] [address] Blvd Unit #: [id number] Loc: [place] [address] Phys: Xavi Aviles MD Acct: [id number] Dis Date: Status: PRE [facility] PHONE #: [phone] Exam Date: 03/26/2020 1045 FAX #: [phone] Reason: PRE-OP LUMPECTOMY EXAMS: CPT CODE: [id number] XR CHEST 2 V 72113 EXAM: CHEST TWO VIEW HISTORY: 84-year-old female with left breast cancer, preoperative evaluation COMPARISON: None. FINDINGS: The lungs are clear. The cardiomediastinal silhouette is normal for projection. Aortic calcifications. No acute osseous abnormality. Partially visualized spinal fusion hardware. Deformity of the left shoulder likely related to remote trauma. IMPRESSION: 1. No acute cardiopulmonary abnormality. SL: [id number] at 1052 Reported and signed by: Gila Armstrong M.D. CC: Xavi Aviles MD; Jovon Key Jr, MD Technologist: Ivy Rodriguez RT(R) Trnsc Date/Time/By: 03/26/2020 (1385) : By: [email or web address] Orig Print D/T: S: 03/26/2020 (0071) PAGE 1 Signed Report COMPREHENSIVE METABOLIC [id number] 09:57:00* Test Item Value Reference Range Interpretation Comments SODIUM (test code = NA) 131 mEq/L 134-147 L POTASSIUM (test code = K) 3.7 mEq/L 3.4-5.0 N CHLORIDE (test code = CL) 97 mEq/L 100-108 L CARBON DIOXIDE (test code = CO2) 27 mEq/L 21-33 N ANION GAP (test code = GAP) 11 0-20 N GLUCOSE (test code = GLU) 94 mg/dL 70-110 N BLOOD UREA NITROGEN (test code = BUN) 14 mg/dL 7-18 N GLOMERULAR FILTRATION RATE (test code = GFR) 95.7 70-80 H Units of measure = ml/min/1.73 m2 CREATININE (test code = CREAT) 0.6 mg/dL 0.6-1.3 N TOTAL PROTEIN (test code = PROT) 6.9 g/dL 6.4-8.2 N ALBUMIN (test code = ALB) 3.30 g/dL 3.4-5.0 L CALCIUM (test code = CA) 8.6 mg/dL 8.0-10.5 N BILIRUBIN TOTAL (test code = BILT) 0.4 MG/DL <1.5 N SGOT/AST (test code = AST) 25 IUnit/L 15-37 N SGPT/ALT (test code = ALT) 26 IUnit/L 15-65 N ALKALINE PHOSPHATASE TOTAL (test code = ALKP) 69 IUnit/L 20-125 N CBC W/AUTO [id number] 09:43:00* Test Item Value Reference Range Interpretation Comments WHITE BLOOD CELL (test code = WBC) 8.45 x10 3/uL 4.5-11.0 N RED BLOOD CELL (test code = RBC) 3.89 x10 6/uL 3.54-5.02 N HEMOGLOBIN (test code = HGB) 11.9 g/dL 11.0-15.0 N HEMATOCRIT (test code = HCT) 36.5 % 33.0-45.0 N MEAN CELL VOLUME (test code = MCV) 93.8 fL 81.0-99.0 N MEAN CELL HGB (test code = MCH) 30.6 pg 27.0-33.0 N MEAN CELL HGB CONCETRATION (test code = MCHC) 32.6 g/dL 33.0-37. 0 L RED CELL DISTRIBUTION WIDTH CV (test code = RDW) 14.6 % 11.5- 14.5 H RED CELL DISTRIBUTION WIDTH SD (test code = RDW-SD) 50.3 fL 37 .0-54.0 N PLATELET COUNT (test code = PLT) 499 x10 3/uL 150-400 H MEAN PLATELET VOLUME (test code = MPV) 9.8 fL 7.0-9.0 H NEUTROPHIL % (test code = NT%) 57.0 % 56.0-77.0 N IMMATURE GRANULOCYTE % (test code = IG%) 0.4 % 0.0-2.0 N LYMPHOCYTE % (test code = LY%) 21.9 % 14.0-32.0 N MONOCYTE % (test code = MO%) 10.3 % 4.8-9.0 H EOSINOPHIL % (test code = EO%) 9.1 % 0.3-3.7 H BASOPHIL % (test code = BA%) 1.3 % 0.0-2.0 N NUCLEATED RBC % (test code = NRBC%) 0.0 % 0-0 N NEUTROPHIL # (test code = NT#) 4.82 x10 3/uL 2.0-7.6 N IMMATURE GRANULOCYTE # (test code = IG#) 0.03 x10 3/uL 0.00-0.03 N LYMPHOCYTE # (test code = LY#) 1.85 x10 3/uL 1.0-3.8 N MONOCYTE # (test code = MO#) 0.87 x10 3/uL 0.1-0.8 H EOSINOPHIL # (test code = EO#) 0.77 x10 3/uL 0.0-0.2 H BASOPHIL # (test code = BA#) 0.11 x10 3/uL 0.0-0.2 N NUCLEATED RBC # (test code = NRBC#) 0.00 x10 3/uL 0.0-0.1 N MANUAL DIFF REQUIRED (test code = MDIFF) NO Blood [id number] 18:34:00* Test Item Value Reference Range Interpretation Comments Blood Culture (test code = 42819887) NO GROWTH AFTER 72 HOURS [facility] [id number] 10:34:00* Test Item Value Reference Range Interpretation Comments Urine Culture (test code = 630-4) No Result Data Provided [facility]field[facility]ial Total Cells Counted 2020-01-22 09:04:00* Test Item Value Reference Range Interpretation Comments Differential Total Cells Counted (test code = Differen tial Total Cells Counted) 100 [facility]fieldNeutrophils % (Manual)2020-01-22 09:04:00 * Test Item Value Reference Range Interpretation Comments Neutrophils % (Manual) (test code = 85732-4) 68 40-74 [facility]fieldLymphocytes % (Manual)2020-01-22 09:04:00 * Test Item Value Reference Range Interpretation Comments Lymphocytes % (Manual) (test code = 737-7) 14 19-48 L [facility] % (Manual)2020-01-22 09:04:00* Test Item Value Reference Range Interpretation Comments Monocytes % (Manual) (test code = 744-3) 15 3.4-9.0 H [facility]osinophils % (Manual)2020-01-22 09:04:00 * Test Item Value Reference Range Interpretation Comments Eosinophils % (Manual) (test code = 714-6) 3 0-7 [facility]fieldPlatelet [id number] 09:04:00* Test Item Value Reference Range Interpretation Comments Platelet Estimate (test code = 52304-8) SLIGHTLY INCREASED [facility]fieldPlatelet Morphology [id number] 09:04:00* Test Item Value Reference Range Interpretation Comments Platelet Morphology Comment (test code = 95723-3) NORMAL [facility]fieldRed Cell Morphology [id number] 09:04:00* Test Item Value Reference Range Interpretation Comments Red Cell Morphology Comment (test code = 6742-1) NORMAL [facility] Clubodium [id number] 06:04:00* Test Item Value Reference Range Interpretation Comments Sodium Level (test code = 2951-2) 130 136-145 L [facility]fieldPotassium Eledb1184-15-71 06:04:00* Test Item Value Reference Range Interpretation Comments Potassium Level (test code = 2823-3) 3.8 3.5-5.1 [facility]fieldChloride [id number] 06:04:00* Test Item Value Reference Range Interpretation Comments Chloride Level (test code = 2075-0) 99 98-107 [facility]fieldCarbon Dioxide [id number] 06:04:00* Test Item Value Reference Range Interpretation Comments Carbon Dioxide Level (test code = 2028-9) 26 22-29 [facility] MansfieldAnion [id number] 06:04:00* Test Item Value Reference Range Interpretation Comments Anion Gap (test code = 74214-8) 8.8 8-16 [facility]fieldBlood Urea [id number] 06:04:00* Test Item Value Reference Range Interpretation Comments Blood Urea Nitrogen (test code = 3094-0) 10 7-26 [facility]fieldCreatinine2020-03-30 06:04:00* Test Item Value Reference Range Interpretation Comments Creatinine (test code = 2160-0) 0.63 0.57-1.11 [facility]fieldBUN/Creatinine [id number] 06:04:00* Test Item Value Reference Range Interpretation Comments BUN/Creatinine Ratio (test code = 3097-3) 16 6-25 [facility]fieldEstimat Glomerular Filtration Rate 2020-01-22 06:04:00* Test Item Value Reference Range Interpretation Comments Estimat Glomerular Filtration Rate (test code = 914328862) > 60 >60 Ranges were taken from the National Kidney Disease Education Program and the [facility] Foundation literature.Reference ranges:60 or greater: Kmpvpy18-46 ( for 3 consecutive months): Chronic kidney disease 15 or less: Kidney failureTexas Health Hospital MansfieldGlucose Igjgj8410-16-85 06:04:00* Test Item Value Reference Range Interpretation Comments Glucose Level (test code = WZS9501) 106 74-118 [facility]fieldCalcium Ycgwl0667-48-65 06:04:00* Test Item Value Reference Range Interpretation Comments Calcium Level (test code = 60943-6) 7.8 8.4-10.2 L [facility]fieldTotal Akjuehviz0293-88-26 06:04:00* Test Item Value Reference Range Interpretation Comments Total Bilirubin (test code = 1975-2) 0.3 0.2-1.2 [facility]fieldAspartate Amino Transf (AST/SGOT) 2020-01-22 06:04:00* Test Item Value Reference Range Interpretation Comments Aspartate Amino Transf (AST/SGOT) (test code = Aspartate Amino Transf (AST/SGOT)) 29 5-34 [facility]fieldAlanine Aminotransferase (ALT/SGPT) 2020-01-22 06:04:00* Test Item Value Reference Range Interpretation Comments Alanine Aminotransferase (ALT/SGPT) (test code = 1742-6) 35 0-55 [facility]fieldTotal Bzvlgik0982-20-53 06:04:00* Test Item Value Reference Range Interpretation Comments Total Protein (test code = 2885-2) 5.1 6.5-8.1 L [facility]fieldAlbumin2020-03-30 06:04:00* Test Item Value Reference Range Interpretation Comments Albumin (test code = 1751-7) 2.2 3.5-5.0 L [facility]fieldGlobulin2020-03-30 06:04:00* Test Item Value Reference Range Interpretation Comments Globulin (test code = 95118-9) 2.9 2.3-3.5 [facility]fieldAlbumin/Globulin Qezzp8031-44-98 06:04:00 * Test Item Value Reference Range Interpretation Comments Albumin/Globulin Ratio (test code = 1759-0) 0.8 0.8-2.0 [facility]fieldAlkaline Hvdlloifjhz5793-43-35 06:04:00* Test Item Value Reference Range Interpretation Comments Alkaline Phosphatase (test code = 6768-6) 68 40-150 [facility]fieldWhite Blood Iabjr3155-38-33 05:26:00* Test Item Value Reference Range Interpretation Comments White Blood Count (test code = 6690-2) 11.00 4.8-10.8 H [facility]fieldRed Blood Apzik9544-09-45 05:26:00* Test Item Value Reference Range Interpretation Comments Red Blood Count (test code = 789-8) 3.10 3.6-5.1 L [facility]fieldHemoglobin2020-03-30 05:26:00* Test Item Value Reference Range Interpretation Comments Hemoglobin (test code = 71123-3) 9.3 12.0-16.0 L [facility]fieldHematocrit2020-03-30 05:26:00* Test Item Value Reference Range Interpretation Comments Hematocrit (test code = 4544-3) 28.6 34.2-44.1 L [facility]fieldMean Corpuscular Jjfnkq7198-37-97 05:26:00* Test Item Value Reference Range Interpretation Comments Mean Corpuscular Volume (test code = 787-2) 92.3 81-99 [facility]fieldMean Corpuscular Rdjgffzjmq9279-56-17 05:26:00* Test Item Value Reference Range Interpretation Comments Mean Corpuscular Hemoglobin (test code = 785-6) 30.0 28-32 [facility]fieldMean Corpuscular Hemoglobin Concent 2020-01-22 05:26:00* Test Item Value Reference Range Interpretation Comments Mean Corpuscular Hemoglobin Concent (test code = 786-4) 32.5 31-35 [facility]fieldRed Cell Distribution Hwlkl4535-38-90 05:26:00* Test Item Value Reference Range Interpretation Comments Red Cell Distribution Width (test code = 14178-8) 13.3 11.7 -14.4 [facility] MansfieldPlatelet Iyudy9168-88-45 05:26:00* Test Item Value Reference Range Interpretation Comments Platelet Count (test code = 777-3) 547 140-360 H [facility]fieldNeutrophils (%) (Auto)2020-01-22 05:26:00 * Test Item Value Reference Range Interpretation Comments Neutrophils (%) (Auto) (test code = 39434-0) 60.3 38.7-80.0 [facility]fieldLymphocytes (%) (Auto)2020-01-22 05:26:00 * Test Item Value Reference Range Interpretation Comments Lymphocytes (%) (Auto) (test code = 736-9) 16.1 18.0-39.1 L [facility]fieldMonocytes (%) (Auto)2020-01-22 05:26:00* Test Item Value Reference Range Interpretation Comments Monocytes (%) (Auto) (test code = 5905-5) 16.4 4.4-11.3 H [facility]fieldEosinophils (%) (Auto)2020-01-22 05:26:00 * Test Item Value Reference Range Interpretation Comments Eosinophils (%) (Auto) (test code = 713-8) 5.6 0.0-6.0 [facility]fieldBasophils (%) (Auto)2020-01-22 05:26:00* Test Item Value Reference Range Interpretation Comments Basophils (%) (Auto) (test code = 706-2) 1.1 0.0-1.0 H [facility] MansfieldIM GRANULOCYTES %2020-01-22 05:26:00* Test Item Value Reference Range Interpretation Comments IM GRANULOCYTES % (test code = IM GRANULOCYTES %) 0.5 0.0- 1.0 [facility]fieldNeutrophils # (Auto)2020-01-22 05:26:00* Test Item Value Reference Range Interpretation Comments Neutrophils # (Auto) (test code = 751-8) 6.6 2.1-6.9 [facility]fieldLymphocytes # (Auto)2020-01-22 05:26:00* Test Item Value Reference Range Interpretation Comments Lymphocytes # (Auto) (test code = 95869-4) 1.8 1.0-3.2 [facility]fieldMonocytes # (Auto)2020-01-22 05:26:00* Test Item Value Reference Range Interpretation Comments Monocytes # (Auto) (test code = 742-7) 1.8 0.2-0.8 H [facility]fieldEosinophils # (Auto)2020-01-22 05:26:00* Test Item Value Reference Range Interpretation Comments Eosinophils # (Auto) (test code = 711-2) 0.6 0.0-0.4 H [facility]fieldBasophils # (Auto)2020-01-22 05:26:00* Test Item Value Reference Range Interpretation Comments Basophils # (Auto) (test code = 704-7) 0.1 0.0-0.1 [facility]fieldAbsolute Immature Granulocyte (auto 2020-01-22 05:26:00* Test Item Value Reference Range Interpretation Comments Absolute Immature Granulocyte (auto (raman t code = Absolute Immature Granulocyte (auto) 0.06 0-0.1 [facility]fieldCoronavirus (PCR)2020-01-21 19:36:00* Test Item Value Reference Range Interpretation Comments Coronavirus (PCR) (test code = Coronavirus (PCR)) NOT DETECTED NOTD ETECTED SARS-COV-2 (COVID19), HIGHRISK, RT-PCRNegative results do not preclude SARS-CoV- 2 infection and should not be used as the sole basis for patient management deci sions. Negative results must be combined with clinical observations, patient his tory, and epidemiological information. Optimum specimen types and timing for pea k viral levels during infections caused by SARS-CoV-2 have not been determined. Collection of multiple specimens ot types of specimens may be necessary to detec t virus. Improper specimen collection and handling, sequence variability under p rimers/probes, or organism present below the limit of detection may lead to fals e negative results. Positive and negative predictive values of testing are highl y dependent on prevalance. False negative test results are more likely when prev alence is high.The expected result is negative (not detected).The SARS-CoV-2 raman t is intended for the qualitative detection of nucleic acid from SARS-CoV-2 in n asopharyngeal and oropharyngeal swab samples from patients who meet COVID-19 cli nical and or epidemiological criteria. For lower respiratory tract specimens, th e assay is submitted for authoriztion by FDA under an Emergency Use Authorizatio n (EUA). Testing methodology is real time RT-PCR. If received as separate collec tion devices, nasopharygeal and oropharyngeal specimens are combined for analysi s. Additional specimens may be split to a separate accession for analysi and rep orting as this test includes a single unit of service.Test results must be corre lated with clinical presentation and evaluated in the context of other laborator y and epidemiologic data. Test performance can be affected because the epidemiol ogy and clinical spectrum of infection caused by SARS-CoV-2 is not fully known. For example, the optimum types of specimens to collect and when during the cours e of infection these specimens are most likely to contain detectable viral RNA m ay not be known.This test has not been Food and Drug Administration (FDA) cleare d or approved and has been authorized by FDA under an Emergency Use Authorizatio n (EUA). The test is only authorized for the duration of the declaration that ci rcumstances exist justifying the authorization of emergency use of in vitro diag nostic tests for detection and/or diagnosis of SARS-CoV-2 under section 564(b) o f the Act, 21 U.S.C. section 360bbb-3(b)(1), unless the authorization is termina ortiz or revoked sooner. [facility] are certified under the C linical Laboratory Improvement Amendments of 1988 (CLIA), 42 U.S.C. section 263a , to perform high complexity tests.Specimen sent to [facility] and testing performed by [facility] [address] [place] [address] [phone] Director: Bran Elizabeth M.D.CLIA # 4 [id number] Health Hospital MansfieldCreatine Kinase DY5578-92-84 14:37:00* Test Item Value Reference Range Interpretation Comments Creatine Kinase MB (test code = 15408-0) 2.20 0-5.0 [facility]fieldTroponin O5460-16-78 14:37:00* Test Item Value Reference Range Interpretation Comments Troponin I (test code = FWZ7148) < 0.001 0-0.300 [facility]fieldCreatine Epxtun3940-19-25 14:25:00* Test Item Value Reference Range Interpretation Comments Creatine Kinase (test code = 2157-6) 197 29-168 H [facility] SINGLE (PORTABLE)2020-01-20 09:07:00 [facility] [address] [address] Patient Name: JAMES BETHEA MR #: [id number] : 1935 Age/Sex: 84/F Req #: [id number] Adm Physician: DIANE ALDRICH MD Ordered by: BRENT RINCON MD Report #: [id number] Location: [facility] Room/Bed: [address] [address] Procedure: [id number] DX/ CHEST SINGLE (PORTABLE) Exam Date: 01/20/20 Exam Heath e: 0800 REPORT STATUS: Signed EX AMINATION: CHEST SINGLE (PORTABLE) INDICATION: PNEMONIA 2 5071959 0800 Y COMPARISON: CT chest 01/19/2020 FINDINGS : AP view TUBES and LINES: None. LUNGS: Lungs are well inflated. Stable mild subsegmental atelectasis in both lung bases and few a scattered small nodules in the right lower lobe. Mild bilateral apical pleuroparenchymal scarring, unchanged. No new consolidations or pulmonary edema. PLEURA: No pleural effusion or pneumothorax. HEART AND MEDIASTINUM: The cardiome diastinal silhouette is unremarkable.. BONES AND SOFT TISSUES: Status po st fixation of the upper lumbar spine. Diffuse posttraumatic deformity of the left humeral head. Soft tissues are unremarkable. UPPER ABDOMEN: No free air under the diaphragm. IMPRESSION: Stable bibasilar atelectasis a nd few scattered right lower lobe pulmonary nodules. No new consolidations or groundglass opacities. Signed by: Dr. Juana Lorenzana M.D. on 9:22 AM Dictated By: JUANA LORENZANA MD 1 Transcribed By: ERROL on 01/20/20921 COPY TO: BRENT RINCON MD Band Neutrophils % 2020-01-20 08:28:00* Test Item Value Reference Range Interpretation Comments Band Neutrophils % (test code = 764-1) 1 [facility]fieldThyroid Stimulating Hormone (TSH) 2020-01-20 06:00:00* Test Item Value Reference Range Interpretation Comments Thyroid Stimulating Hormone (TSH) (test code = 97852-3) 0.588 0.350-4.940 [facility] MansfieldMagnesium Einlw9155-72-71 05:44:00* Test Item Value Reference Range Interpretation Comments Magnesium Level (test code = 06214-8) 1.4 1.3-2.1 [facility]fieldHemoglobin A1c Bemvrjk2417-04-03 05:43:00 * Test Item Value Reference Range Interpretation Comments Hemoglobin A1c Percent (test code = Hemoglobin A1c Percent) 5.5 4.0-7.0 [facility] MansfieldCT CHEST KS0251-70-65 20:47:00 [facility] [address] [place] [address] Patient Name: JAMES BETHEA MR #: [id number] : 1935 Age/Sex: 84/F Req #: [id number] Adm Physician: DIANE ALDRICH MD Ordered by: BRENT RINCON MD Report #: [id number] Location: [facility] Room/Bed: [address] [address] Procedure: [id number] CT/ CT CHEST WO Exam Date: 01/19/20 Exam Time: 2029 REPORT STATUS: Signed EXAMINATION: CT scan of the chest without contrast. TECHNIQUE: Helical CT images of the chest were performed from the lung apices to the level of the adrenal glands. No intravenous contrast was administered Coronal and sagittal reformatted images were obtained. Dose modulation, iterative reconstruction, and/or weight based adjustment of the mA/kV was utilized to reduce the radiation dose to as low as reasonably achievable. COMPARISON: None. CLINICAL HISTORY:Co ugh, fever DISCUSSION: ABSENCE OF INTRAVENOUS CONTRAST DECREASES SENSITIV ITY FOR DETECTION OF FOCAL LESIONS AND VASCULAR PATHOLOGY. LINES/TUBES: None. LUNGS AND AIRWAYS: Age-related interstitial thickening. No airspace consolidation or groundglass opacity. No concerning mass. Calcification of the airways. PLEURA: No pneumothorax or pleural effusions. HEART AND MEDIASTINUM: The thyroid gland is normal. The heart and pericardium are wit hin normal limits. LYMPH NODES: There is no mediastinal, hilar or axillary lymphadenopathy. ABDOMEN: Limited contrast-enhanced views of the upper abdo men show no abnormality within the visualized liver, spleen, pancreas, or kidn eys. The adrenal glands are normal. BONES AND SOFT TISSUES: Bone deminera lization. Mild multilevel thoracic spondylosis. Lower lumbar fusion, which is partially visualized. Posttraumatic deformity of the proximal left humerus and arthropathy. IMPRESSION: No acute CT finding of the chest Signed by: Dr. Jesus Irene M.D. on 01/19/2020 8:51 PM Dictated By: JESUS IRENE MD 50 Tra nscribed By: ERORL on 01/19/202050 COPY TO: BRENT RINCON MD B-Type Natriuretic Ajmlsew0597-30-11 18:40:00* Test Item Value Reference Range Interpretation Comments B-Type Natriuretic Peptide (test code = 01574-5) 47.3 0-100 [facility]fieldInfluenza Virus Types A,B Antigen 2020-01-19 18:12:00* Test Item Value Reference Range Interpretation Comments Influenza Virus Types A,B Antigen (test code = 36899-8) NEGATIVE NEGATIVE [facility] MansfieldGroup A Streptococcus Mbgdxl3092-09-57 18:12:00* Test Item Value Reference Range Interpretation Comments Group A Streptococcus Screen (test code = 70179-4) NEGATIVE NEG ATIVE [facility] MansfieldProthrombin Caqk7117-18-54 18:09:00* Test Item Value Reference Range Interpretation Comments Prothrombin Time (test code = 5902-2) 14.8 11.9-14.5 H [facility] MansfieldProthromb Time International Ratio 2020-01-19 18:09:00* Test Item Value Reference Range Interpretation Comments Prothromb Time International Ratio (test code = 6301-6) 1.09 Oral Anticoagulant Therapy INR Values:1. Low Intensity Therapy 1.5 - 2.02 . Moderate Intensity Therapy 2.0 - 3.03. High Intensity Therapy(1) 2.5 - 3. 54. High Intensity Therapy(2) 3.0 - 4.05. Panic Value INR > 5.0 [facility] MansfieldActivated Partial Thromboplast Time 2020-01-19 18:09:00* Test Item Value Reference Range Interpretation Comments Activated Partial Thromboplast Time (test code = 79614-5) 28.9 23.8-35.5 [facility] MansfieldLactic Acid Oyudf5223-09-77 17:44:00* Test Item Value Reference Range Interpretation Comments Lactic Acid Level (test code = Lactic Acid Level) 1.1 0.5- 2.0 [facility]fieldCHEST SINGLE (PORTABLE)2020-01-19 17:40:00 [facility] [address] [place] [address] Patient Name: JAMES BETHEA MR #: [id number] : 1935 Age/Sex: 84/F Req #: [id number] Adm Physician: Ordered by: KYLE NUNEZ INSTRUMENT LENS GRINDER Report #: [id number] Location: ER Room/Bed: Procedure: [id number] DX /CHEST SINGLE (PORTABLE) Exam Date: 01/19/20 Exam Ti me: 1700 REPORT STATUS: Signed E xamination: Single AP view of the chest. COMPARISON: None. INDICATION: Fever DISCUSSION: Lines/tubes: None. Lungs: Granulomatous change throughout the lungs. Hyperinflation. No consolidative pneumonia. Pleura: No pleural effusion or pneumothorax. Heart and mediastinum: The heart and the mediastinum are unremarkable. Bones and soft tissues: No acu te bony abnormalities. IMPRESSION: No acute cardiopulmonary dise ase Signed by: Dr. Jesus Irene M.D. on 01/19/2020 5:41 PM Dictate d By: JESUS IRENE MD 40 COPY TO: SHAWN NUNEZ INSTRUMENT LENS GRINDER Urine Smnjj4227-38-42 17:33:00* Test Item Value Reference Range Interpretation Comments Urine Color (test code = 5778-6) YELLOW YELLOW [facility]fieldUrine Mlygeif2961-67-83 17:33:00* Test Item Value Reference Range Interpretation Comments Urine Clarity (test code = 83375-7) CLEAR CLEAR [facility]fieldUrine Specific Xhmcqfi4747-69-79 17:33:00 * Test Item Value Reference Range Interpretation Comments Urine Specific [place] (test code = 5811-5) 1.025 1.010-1.02 5 [facility]fieldUrine kG0776-69-02 17:33:00* Test Item Value Reference Range Interpretation Comments Urine pH (test code = 27126-7) 6.5 5-7 [facility]fieldU[facility] Leukocyte Xvvhiazi2801-10-03 17:33:00* Test Item Value Reference Range Interpretation Comments Urine Leukocyte Esterase (test code = 5799-2) NEGATIVE NEGATIVE [facility]fieldUrine Iqmqtsu6849-72-86 17:33:00* Test Item Value Reference Range Interpretation Comments Urine Nitrite (test code = 00201-5) NEGATIVE NEGATIVE [facility]fieldUrine Joziuok5967-41-01 17:33:00* Test Item Value Reference Range Interpretation Comments Urine Protein (test code = 5804-0) 1+ NEGATIVE H [facility]fieldU[facility] Glucose (UA)2020-01-19 17:33:00* Test Item Value Reference Range Interpretation Comments Urine Glucose (UA) (test code = 2349-9) NEGATIVE NEGATIVE [facility]fieldUrine Fgzeyuk6696-83-30 17:33:00* Test Item Value Reference Range Interpretation Comments Urine Ketones (test code = 50571-4) 2+ NEGATIVE H [facility]fieldUrine Rfmhyizlxibl8933-96-57 17:33:00* Test Item Value Reference Range Interpretation Comments Urine Urobilinogen (test code = 83744-2) 0.2 0.2-1 [facility]fieldUrine Hjexxzmxx1278-24-78 17:33:00* Test Item Value Reference Range Interpretation Comments Urine Bilirubin (test code = 1978-6) NEGATIVE NEGATIVE [facility]fieldUrine Bzgbb2136-28-27 17:33:00* Test Item Value Reference Range Interpretation Comments Urine Blood (test code = 46076-7) 2+ NEGATIVE [facility]fieldU[facility] SNR4846-78-62 17:33:00* Test Item Value Reference Range Interpretation Comments Urine WBC (test code = 5821-4) 6-10 0-5 H [facility]fieldU[facility] JXW4104-15-99 17:33:00* Test Item Value Reference Range Interpretation Comments Urine RBC (test code = 65680-7) 6-10 0-5 H [facility]fieldUrine Ftndrndo3901-14-68 17:33:00* Test Item Value Reference Range Interpretation Comments Urine Bacteria (test code = 19704-6) RARE NONE [facility]fieldU[facility] Epithelial Jilxb2499-63-58 17:33:00 * Test Item Value Reference Range Interpretation Comments Urine Epithelial Cells (test code = 55659-4) FEW NONE [facility]fieldMAMMOGRAPHY DIGITAL DX UNI VO4442-75-54 16:04:[address] [address] Patient Name: JAMES BETHEA MR #: [id number] : 1935 Age/Sex: 84/F Req #: [id number] Adm Physician: Ordered by: JOVON KEY MD Report #: [id number] Location: Room/Bed: Procedure: [id number] MG /MAMMOGRAPHY DIGITAL DX UNI LT Exam Date: 11/29/19 E xam Time: 1500 REPORT STATUS: Kristin d #[id number] - MGDXLT #UNILATERAL LEFT DIGITAL DIAGNOSTIC MAMMOGRAM POST-PROCEDURE IMAGING FOR MARKER PLACEMENT: 11/29/2019 Comparison is made to ex ams dated: 11/29/2019 ultrasound biopsy and 11/17/2019 mammogram - [facility]. Current study contains 2 films. The tissue of the le ft breast is heterogeneously dense. This may lower the sensitivity of mammogr aphy. A clip is noted in the left breast at the biopsy site. IMPRE SSION: POST PROCEDURE MAMMOGRAM FOR MARKER PLACEMENT KYLE CHAUDHARY M.D. ct/:11/29/2019 16:36:14 Publicity Agent: Yudi Hernandez RT (R)(M), [facility] Mammogram BI-RADS: Post-procedur e mammogram for marker placement Dictated By: KYLE CHAUDHARY MD Electronical ly Signed By: KYLE CHAUDHARY MD on 11/29/191635 Transcribed By: HEIDI on 11/29 COPY TO: JOVON KEY MD BX BRST ADD LESION US OULA-PM5002-75-05 16:04:00 [address], [place], [place] [address] Patient Name: JAMES BETHEA MR #: [id number] : 1935 Age/Sex: 84/F Req #: [id number] Adm Physician: Ordered by: JOVON KEY MD Report #: [id number] Location: US Room/Bed: Procedure: [id number] US /BX BRST ADD LESION US IMAG-LT Exam Date: Exam Time : REPORT STATUS: Signed THIS RE PORT HAS BEEN AMENDED. #[id number] - BXBRADUSLT ULTRASOUND GUIDED BIOPS Y LEFT BREAST WITH MARKING DEVICE INSERTED: 11/29/2019 PATIENT CONSENT: Jung ALMODOVAR jessica, a time out was performed, correct site was localized and the patient was consented. Correlation is made to exams dated: 11/17 mammogram and 11/17/2019 ultrasound - [facility] . An ultrasound guided biopsy using real-time ultrasound was performed for t he 6 mm mass located in the left breast at 3 o'clock in the retroareolar hiren on. This was described on the previous mammography report. The skin was pre pped in the usual manner. Local anesthetic was administered to the access si te. A small incision was made in the breast. A 14 gauge biopsy needle was plac ed adjacent to the abnormality under ultrasound guidance. Once the needle wa s documented to be in the correct location, four specimens were obtained using an Achieve automated firing device. A clip was inserted at the biopsy site. The specimens were sent to the laboratory for pathological analysis. IMPRESSION: ULTRASOUND GUIDED BIOPSY Ultrasound guided biopsy of the 6 mm mass in the left breast at 3 o'clock in the retroareolar region was successful. Waiting for pathology results. A final report will be issued when these become available. KYLE CHAUDHARY M.D. ct/:11/29/2019 16:35:24 Im aging Technologist: GISELLA PHELAN [facility], [facility] 19 804LT AMENDMENT: 12/08/2019 KYLE CHAUDHARY M.D. Pathology report from the USG guided biopsy has become available. The report indicates: Invasi ve lobular carcinoma. Please refer to the full report, or [facility], for additional details. Recommend surgical consultation. I d iscussed the results of the case with Mode Restrepo in Dr. Key's office at 14:25 on 12-08-2019. Dictated By: KYLE CHAUDHARY MD Electronical ly Signed By: KYLE CHAUDHARY MD on 11/29/19 1635 Transcribed By: HEIDI on 12/08 1419 COPY TO: JOVON KEY MD MAMMOGRAPHY DIGITAL DX CDSND3310-92-72 15:38:00 [facility] [address] [place] [address] Patient Name: JAMES BETHEA MR #: [id number] : 1935 Age/Sex: 84/F Req #: [id number] Adm Physician: Ordered by: JOVON KEY MD Report #: [id number] Location: MAMMO Room/Bed: Procedure: [id number] MG /MAMMOGRAPHY DIGITAL DX BILAT Exam Date: 11/17/19 Ex am Time: 1504 REPORT STATUS: Signed #[id number] - MGDXBIL #BILATERAL DIGITAL DIAGNOSTIC MAMMOGRAM WITH C AD: 11/17/2019 No prior exams were available for comparison. Current study con tains 7 films. The tissue of both breasts is heterogeneously dense. This may lower the sensitivity of mammography. Current study was also evaluated wi th a Computer Aided Detection (CAD) system. Numerous coarse benign appearing calcifications are noted bilaterally. There is a 6 mm mass in the left aditya st at 3 o'clock anterior depth. This correlates as palpated and with ultraso und findings. No other significant masses, calcifications, or other findings are seen in either breast. IMPRESSION: SUSPICIOUS OF MALIGNANCY See the report for ultrasound performed the same day for additional details. The 6 mm mass in the left breast is at a low suspicion for malignancy. An ultrasound guided biopsy is recommended. A phone call was made to the physician's of [facility]. The findings were discussed with the patient and her family member. The patient will be contacted by the Mammography Department to schedule this vanessa ointment. KYLE CHAUDHARY M.D. ct/:11/17/2019 16:05:59 Publicity Agent: Yudi BLANCHARD (R)(Aayush), [facility] er letter sent: Biopsy Required Mammogram BI-RADS: 4a Suspicious abnormali ty - low suspicion for malignancy Dictated By: KYLE CHAUDHRAY MD [facility] Signed By: KYLE CHAUDHARY MD on 11/17/19 1605 Transcribed By: HEIDI on 10/26 02/11 1605 COPY TO: JOVON KEY MD BREAST LIMITED [facility] 2019-11-17 15:33:00 [address] [address] Patient Name: JAMES BETHEA MR #: [id number] : 1935 Age/Sex: 84/F Req #: [id number] [facility] Physician: Ordered by: JOVON KEY MD Report #: [id number] Location: MAMMO Room/Bed: Procedure: [id number] US /US BREAST LIMITED LEFT Exam Date: Exam Time: REPORT STATUS: Signed #[id number] - USBRELIMLT ULTRASOUND OF THE LEFT BREAST : 11/17/2019 Comparison is mad e to exam dated: 11/17/2019 mammogram - [facility]. Real-time ultrasound was performed on the left breast. There is a 6 mm irreg ular mass in the left breast at 3 o'clock anterior depth. This irregular mass is hypoechoic. IMPRESSION: SUSPICIOUS OF MALIGNANCY - FOLLOW-UP RECOM MENDED The 6 mm irregular mass in the left breast is at a low suspicion for ma lignancy. An ultrasound guided biopsy is recommended. A phone call was m joycelny to the physician's office. The findings were discussed with the patient and her family member. The patient has been or will be contacted. SHAWN CHAUDHARY M.D. ct/:11/17/2019 16:07:25 Publicity Agent: GISELLA Smyth RDNH, [facility] letter sent: Biopsy Required Ul trasound BI-RADS: 4a Suspicious abnormality - low suspicion for malignancy D ictated By: KYLE CHAUDHARY MD 1607 COPY TO: CARIE KEY MD Stool Jftianzqeauf6182-98-91 00:46:00* Test Item Value Reference Range Interpretation Comments Stool Calprotectin (test code = 79616-2) 23 0-120 Concentration Interpretation Follow-Up<16 - 50 ug/g Normal None>50 -120 ug/g Borderline Re-evaluate in 4-6 weeks >120 ug/g Abnormal Repeat as clinically indicatedPerformed at: - [facility] [id number] Director: Dona Thomas MD, Phone: [phone] [facility] Lactoferrin (LAB)2019-09-18 13:50:00* Test Item Value Reference Range Interpretation Comments Stool Lactoferrin (LAB) (test code = 55889-5) POSITIVE NEGATIVE H Testing on stool aspirate specimens is outside brim rounder claims since specime n type not validated on this assay.[facility] Clostridium Difficile Toxin A & R6557-02-42 13:50:00* Test Item Value Reference Range Interpretation Comments Clostridium Difficile Toxin A & B (test code = 683262388) NEGATIVE NEGATIVE Testing on stool aspirate specimens is outside brim rounder claims since specime n type not validated on this assay.[facility] [address] [address] Patient Name: JAMES BETHEA MR #: [id number] : 1935 Age/Sex: 82/F Req #: [id number] Adm Physician: Ordered by: DONNELL CAMP MD Report #: [id number] Location: ER Room/Bed: Procedure: [id number] DX/SACRUM COCCYX Exam Da te: 03/25/18 Exam Time: 1300 REPORT STATUS: Sig wes PROCEDURE: SACRUM T COCCYX TECHNIQUE: AP and lateral images obtai wes INDICATION: Hip and tailbone pain, fall COMPARISON: None. FIND INGS: The bones are diffusely demineralized. There are pedicle screws and vertical stabilizing bars in the lower lumbar spine, incompletely imaged. The visualized portions extend from L3-S1. There are artificial disc spacers at L2-3, L3-4, and possibly L4-5. There is disc space narrowing at L5-S1. The visualized hardware is intact without lucency to suggest loosening. Sa croiliac joints and pubic symphysis are normal in morphology and patent. Visu alized portions of the hips are intact and normally positioned. Lateral image of the sacrum demonstrates anterior cortical discontinuity of S3 and a lso the anterior border of the S5 suggestive of fracture. No callus formation to suggest healing. CONCLUSION: Fractures of the distal sacrum as described above. Postoperative changes of the lower lumbar spine as describ ed above. Diffuse demineralization. Dictated by: Sindhu Hardy M.D. on 03/25/2018 at 13:43 Electronically approved by: Sindhu Hardy M.D. on 03/25/2018 at 13:43 Dictated By: SINDHU HARDY MD Elec tronically Signed By: SINDHU HARDY MD on 03/25/18 1343 Transcribed By: PAULETTE GUZMAN on 03/25/18 1343 COPY TO: DONNELL CAMP MD PELVIS AP 1-2 VIEWS [address] [place] [address] Patient Name: JAMES BETHEA MR #: [id number] : 1935 Age/Sex: 82/F Req #: [id number] Adm Physician: Ordered by: DONNELL CAMP MD Report #: [id number] Location: ER Room/Bed: Procedure: [id number] DX/PELVIS AP 1-2 VIEWS Exa m Date: 03/25/18 Exam Time: 1300 REPORT STATUS: Signed PROCEDURE: X-RAY PELVIS, AP VIEW COMPARISON: Sacrum x-rays obtained at the same time. INDICATIONS: BILATERAL HIP PAIN FINDING S: The bones are diffusely demineralized. No diastases of the symphysis or sacroiliac joints. The hips are intact and normally positioned. The pubic rami are intact. Bilateral pedicle screws and vertical stabilizing bars in the lower lumbar spine are incompletely imaged. The hardware is intact. The fractures of the coccyx identified on dedicated imaging are poorly visu alized on this exam. CONCLUSION: No fracture or dislocation on th is single image. Fusion hardware in the lumbar spine as described above. Dictated by: Sindhu Hardy M.D. on 03/25/2018 at 13:46 Electronic ally approved by: Sindhu Hardy M.D. on 03/25/2018 at 13:46 Dictated By: SINDHU HARDY MD 1346 Transcribed By: JESSICA on 03/25/18 1346 COPY TO: DONNELL BENJAMIN MD
[2020-05-27 17:41] LABS: BASOPHILS # (AUTO) 0.1 (0.0-0.1); BASOPHILS % 0.5 % (0.0-1.0); EOSINOPHILS # (AUTO) 0.1 (0.0-0.4); EOSINOPHILS % 0.7 % (0.0-6.0); LYMPHOCYTES # (AUTO) 1.2 (1.0-3.2); MEAN CORPUSCULAR HEMOGLOBIN 29.3 pg (28-32); MEAN CORPUSCULAR HGB CONC 33.3 g/dL (31-35); MONOCYTES # (AUTO) 2.1 (0.2-0.8); MONOCYTES % 10.7 % (4.4-11.3); NEUTROPHILS # (AUTO) 15.7 (2.1-6.9); NEUTROPHILS % 81.4 % (38.7-80.0); PLATELET COUNT 691 x10e3/uL (140-360); RED BLOOD COUNT 3.75 x10e6/uL (3.6-5.1); RED CELL DISTRIBUTION WIDTH 13.7 % (11.7-14.4)
[2020-05-27 17:45] LABS: INR 1.1; PROTHROMBIN TIME 14.8 seconds (11.9-14.5)
[2020-05-27 17:46] LABS: PARTIAL THROMBOPLASTIN TIME 30.9 seconds (23.8-35.5)
[2020-05-27 17:52] LABS: ALBUMIN/GLOBULIN RATIO 0.8 (0.8-2.0); CALCIUM 8.6 mg/dL (8.4-10.2); CREATININE, SERUM 0.97 mg/dL (0.57-1.11)
[2020-05-27 17:58] LABS: CREATINE KINASE MB 1.7 ng/mL (0-5.0)
[2020-05-27 18:47] LABS: CLARITY,URINE SL CLOUDY (CLEAR); COLOR,URINE YELLOW (YELLOW); LEUKOCYTE ESTERASE ,URINE SMALL (NEGATIVE)
[2020-05-27 18:48] LABS: BILIRUBIN,URINE NEGATIVE (NEGATIVE); KETONES,URINE NEGATIVE (NEGATIVE); NITRITE,URINE POSITIVE (NEGATIVE); PROTEIN,URINE DIPSTICK 1+ (NEGATIVE); URINE UROBILINOGEN 0.2 mg/dL (0.2 - 1)
[2020-05-27 18:51] LABS: BACTERIA,URINE MODERATE /HPF
[2020-05-27] MEDS ORDERED: CEFTRIAXONE SOD 1 GM/NS 50 ML 50 ML IV ONE (19:00)
[2020-05-27 19:20] LABS: LYMPHOCYTES % (MANUAL) 2 % (19-48); MONOCYTES % (MANUAL) 6 % (3.4-9.0); NEUTROPHILS % (MANUAL) 91 % (40-74); PLATELET ESTIMATE MODERATELY INCREASED; PLATELET MORPHOLOGY COMMENT NORMAL; RBC MORPHOLOGY COMMENT NORMAL
--- NOTE | 2020-05-27 21:10 | Emergency Department Note ---
History of Present Illnes History of Present Illness Chief Complaint: Genitourinary History of Present Illness This is a 84 year old female . 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 Any updates have been documented here. Past Medical History Recent Fever: Yes Clinical Suspicion of Infectio: Yes New/Unexplained Change in Ment: No Past Medical History: Hypertension, Cancer, UTI's Other Medical History: ENDOMETRIAL CANCER TACHYCARDIA OSTEOPOROSIS NEUROGENIC BLADDER - SELF CATHS AT HOME LEFT FOOT DROP ACTIVE (L) BREAST CANCER Past Surgical History: Appendectomy, Hysterectomy, Knee Replacement, Cataract Removal Other Surgery: SPINAL FUSION T12-S1 TITANIUM IN BACK TORN MENISCUS CARPAL TUNNEL Social History Smoking Cessation: Never Smoker Counseling Performed: No Alcohol Use: None Any Illegal Drug Use: No Other Last Tetanus: UTD Any Pre-Existing Lines (PICC,: Yes Review of Systems Review of Systems Constitutional: Reports as per HPI, Reports chills, Reports fever EENTM: Reports no symptoms Cardiovascular: Reports no symptoms Respiratory: Reports no symptoms Gastrointestinal: Reports no symptoms Genitourinary: Reports as per HPI Musculoskeletal: Reports no symptoms Integumentary: Reports no symptoms Neurological: Reports no symptoms Psychological: Reports no symptoms Endocrine: Reports no symptoms Hematological/Lymphatic: Reports no symptoms Physical Exam Related Data Allergies: Coded Allergies: oxybutynin (Verified Allergy, Mild, 03/25/18) Triage Vital Signs Vital Signs Date Time Temp Pulse Resp B/P (MAP) Pulse Ox O2 Delivery O2 Flow Rate FiO2 05/27/20 16:59 99.6 75 18 123/59 100 Room Air Physical Exam CONSTITUTIONAL Constitutional: Present well-developed, Present well-nourished HENT HENT: Present normocephalic, Present atraumatic, Present oropharynx clear/moist, Present nose normal HENT L/R: Present left ext ear normal, Present right ext ear normal EYES Eyes: Reports PERRL, Reports conjunctivae normal NECK Neck: Present ROM normal PULMONARY Pulmonary: Present effort normal, Present breath sounds normal CARDIOVASCULAR Cardiovascular: Present regular rhythm, Present heart sounds normal, Present capillary refill normal, Present normal rate GASTROINTESTINAL Abdominal: Present soft, Present nontender, Present bowel sounds normal GENITOURINARY Genitourinary: Present exam deferred SKIN Skin: Present warm, Present dry MUSCULOSKELETAL Musculoskeletal: Present ROM normal NEUROLOGICAL Neurological: Present alert, Present oriented x 3, Present no gross motor or s ensory deficits PSYCHOLOGICAL Psychological: Present mood/affect normal, Present judgement normal Results Laboratory Result Diagram: 05/27/20 1716 05/27/201715 Laboratory Laboratory Tests Test 05/27/20 19:30 05/27/20 18:28 05/27/20 17:16 Lactic Acid Level 1.0 mmol/L (0.5-2.0) Urine Color Yellow (YELLOW) Urine Clarity Sl cloudy (CLEAR) Urine pH 6 (5 - 7) Urine Specific [place] 1.020 (1.010-1.025) Urine Protein 1+ (NEGATIVE) Urine Glucose (UA) Negative (NEGATIVE) Urine Ketones Negative (NEGATIVE) Urine Blood Moderate (NEGATIVE) Urine Nitrite Positive (NEGATIVE) Urine Bilirubin Negative (NEGATIVE) Urine Urobilinogen 0.2 mg/dL (0.2 - 1) Urine Leukocyte Esterase Small (NEGATIVE) Urine RBC 11-20 /HPF (0-5) Urine WBC 6-10 /HPF (0-5) Urine Epithelial Cells None /LPF (NONE) Urine Bacteria Moderate /HPF (NONE) White Blood Count 19.28 x10e3/uL (4.8-10.8) Red Blood Count 3.75 x10e6/uL (3.6-5.1) Hemoglobin 11.0 g/dL (12.0-16.0) Hematocrit 33.0 % (34.2-44.1) Mean Corpuscular Volume 88.0 fL (81-99) Mean Corpuscular Hemoglobin 29.3 pg (28-32) Mean Corpuscular Hemoglobin Concent 33.3 g/dL (31-35) Red Cell Distribution Width 13.7 % (11.7-14.4) Platelet Count 691 x10e3/uL (140-360) Neutrophils (%) (Auto) 81.4 % (38.7-80.0) Lymphocytes (%) (Auto) 6.0 % (18.0-39.1) Monocytes (%) (Auto) 10.7 % (4.4-11.3) Eosinophils (%) (Auto) 0.7 % (0.0-6.0) Basophils (%) (Auto) 0.5 % (0.0-1.0) Neutrophils # (Auto) 15.7 (2.1-6.9) Lymphocytes # (Auto) 1.2 (1.0-3.2) Monocytes # (Auto) 2.1 (0.2-0.8) Eosinophils # (Auto) 0.1 (0.0-0.4) Basophils # (Auto) 0.1 (0.0-0.1) Absolute Immature Granulocyte (auto 0.14 x10e3/uL (0-0.1) Differential Total Cells Counted 100 Neutrophils % (Manual) 91 % (40-74) Lymphocytes % (Manual) 2 % (19-48) Monocytes % (Manual) 6 % (3.4-9.0) Reactive Lymphocytes 1 Platelet Estimate Moderately increased Platelet Morphology Comment Normal Red Cell Morphology Comment Normal Prothrombin Time 14.8 seconds (11.9-14.5) Prothromb Time International Ratio 1.10 Activated Partial Thromboplast Time 30.9 seconds (23.8-35.5) Sodium Level 128 mmol/L (136-145) Potassium Level 4.0 mmol/L (3.5-5.1) Chloride Level 92 mmol/L (98-107) Carbon Dioxide Level 24 mmol/L (22-29) Anion Gap 16.0 mmol/L (8-16) Blood Urea Nitrogen 25 mg/dL (7-26) Creatinine 0.97 mg/dL (0.57-1.11) Estimat Glomerular Filtration Rate 55 ML/MIN (60-) BUN/Creatinine Ratio 26 (6-25) Glucose Level 105 mg/dL (74-118) Calcium Level 8.6 mg/dL (8.4-10.2) Total Bilirubin 0.4 mg/dL (0.2-1.2) Aspartate Amino Transf (AST/SGOT) 34 IU/L (5-34) Alanine Aminotransferase (ALT/SGPT) 32 IU/L (0-55) Alkaline Phosphatase 95 IU/L (40-150) Creatine Kinase 90 IU/L (29-168) Creatine Kinase MB 1.70 ng/mL (0-5.0) Troponin I 0.030 ng/mL (0-0.300) Total Protein 6.8 g/dL (6.5-8.1) Albumin 3.0 g/dL (3.5-5.0) Globulin 3.8 g/dL (2.3-3.5) Albumin/Globulin Ratio 0.8 (0.8-2.0) Lab results reviewed: Yes Imaging Imaging results reviewed: Yes Critical Care Time Total Critical Care Time (min): 45 Critical care time exclusive o: separately billable procedures Critcal care necessary due to: sepsis Assessment & Plan Medical Decision Making MDM 84-year-old female arrives to the ED with complaints of fever with indwelling Calle catheter. Concerns of impending sepsis were noted at 1800, no organ dysfunction present. Pt empericall covered with antibiotics. Pt admits to taking antibiotic within 24 hrs prior to arrival to the ED as well. Dr. 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 01/22/20 Reported Medications Ciprofloxacin Hcl (CIPRO) 500 Mg Tablet, 500 MG PO Q12H for 14 Days, #30 TAB 01/22/20 Nitrofurantoin Macrocrystal (NITROFURANTOIN) 100 Mg Capsule, 100 MG PO BIDAC 01/19/20 Acetaminophen (TYLENOL EXTRA STRENGTH) 500 Mg Tablet, 500 MG PO TID 09/14/19 Clonazepam (CLONAZEPAM) 0.5 Mg Tablet, 0.25 MG PO HS, TAB 09/14/19 Aspirin (ASPIRIN) 81 Mg Tab.chew, 81 MG PO DAILY 09/14/19 Spironolactone (Carospir) 25 Mg/5 Ml Oral.susp, 25 MG PO DAILY 09/14/19 Ranitidine Hcl (RANITIDINE HCL) 300 Mg Capsule, 300 MG PO DAILY 09/14/19 Mirabegron (MYRBETRIQ) 50 Mg Tab.er.24h, 50 MG PO DAILY 09/14/19 Metoprolol Succinate (METOPROLOL SUCCINATE) 25 Mg Tab.er.24h, 12.5 MG PO HS 09/14/19 Medications in the ED Ceftriaxone Sodium 50 ml @ 100 mls/hr ONCE ONCE IV Last administered on 05/27/20at 20:38; Admin Dose 100 MLS/HR; Start 05/27/20 at 19:00; Stop 05/27/20 at 19:29; Status DC LISETTE RIVAS DO May 27, 2020 21:10
--- OUTSIDE RECORDS SUMMARY | 2020-05-27 22:05 | XMS REPORT | Clinical Summary ---
Author Author [facility] Address Unknown Phone Unavailable Care Team Providers Care Events Director Name Role Phone PCP Unavailable Allergies Not [...]
--- OUTSIDE RECORDS SUMMARY | 2020-05-27 22:06 | XMS REPORT | Continuity of Care Document ---
Author Author [facility] t Organization [facility] Address [address] [place] [address] [place] [address] Phone Unavailable Care Team Providers Care Manual Lathe Operator Name Role Phone GEORGE MANZANO, Dylan MCKEON PCP DIANE ALDRICH Attjen Unavailable Dylan KEY Attphys Unavailable Donald CAMP Attphys Unavailable DIANE ALDRICH Admjen Unavailable Payers Payer Name Policy Type Policy Number Effective Date Expiration Date S abdulaziz [facility] [id number] 2019 00:00:00 [facility] Medicare A & B [id number] 2002 00:00:00 [facility] Problems This patient has no known problems. Allergies, Adverse Reactions, Alerts Allergy Name Allergy Type Status Severity Reaction(s) Onset Date Inacti ve Date Treating Clinician Comments Source No Known Allergies DA Active U 2020-03-26 00:00:00 [facility] Oxybutynin Allergy to Substance Active Mild 2018-03-25 00:00:00 [facility] Social History Social Habit Start Date Stop Date Quantity Comments Source Sex Assigned At [facility] Medications Ordered Medication Name Filled Medication Name Start Date Stop Da te Current Medication? Ordering Clinician Indication Dosage Frequency Signature (SIG) Comments Components Source Calcium Carbonate 500 Mg Tab Calcium Carbonate 500 Mg Tab 2019-12-26 0 00:00:00 Yes Dodie Looney [place] [employer] 500 Daily [facility] Acetaminophen (Tylenol Extra Strength) 500 Mg Tablet A cetaminophen (Tylenol Extra Strength) 500 Mg Tablet Yes 500 Three Ti mes A Day [facility] Aspirin 81 Mg Tab.chew Aspirin 81 Mg Tab.chew Yes 81 Daily [facility] Ciprofloxacin Hcl (Cipro) 500 Mg Tablet Ciprofloxacin Hcl (C ipro) 500 Mg Tablet Yes 500 Every 12 Hours [facility] Clonazepam 0.5 Mg Tablet Clonazepam 0.5 Mg Tablet Yes .25 Bedtime [facility] Metoprolol Succinate 25 Mg Tab.er.24h Metoprolol Succinate 25 Mg Ta b.er.24h Yes 12.5 Bedtime [facility] Mirabegron (Myrbetriq) 50 Mg Tab.er.24h Mirabegron (Myrbetri q) 50 Mg Tab.er.24h Yes 50 Daily [facility] Nitrofurantoin Macrocrystal (Nitrofurantoin) 100 Mg Ca psule Nitrofurantoin Macrocrystal (Nitrofurantoin) 100 Mg Capsule Yes 100 Twice Daily Before Meals [facility] Ranitidine Hcl 300 Mg Capsule Ranitidine Hcl 300 Mg Capsule Yes 300 Daily [facility] Spironolactone (Carospir) 25 Mg/5 Ml Oral.susp Spirono lactone (Carospir) 25 Mg/5 Ml Oral.susp Yes 25 Daily [facility] Procedures Procedure Date / Time Performed Performing Clinician [facility] e Computed tomography of chest without contrast 2020-01-19 00: 00:00 BRENT RINCON [facility] Bx breast add lesion US imag 2019-11-29 00:00:00 JOVON KEY [facility] Limited ultrasound of left breast 2019-11-17 00:00:00 JOVON KEY [facility] COLONOSCOPY AND BIOPSY 2019-09-18 00:00:00 STACIE SIGALA [facility] COLONOSCOPY W/LESION REMOVAL 2019-09-18 00:00:00 STACIE SIGALA [facility] Encounters Start Date/Time End Date/Time En[facility] ID Source 2020-01-19 19:37:00 2020-01-22 14:39:00 Discharged Inpatient 1 DIANE ALDRICH [facility] [id number] [facility] 2019-11-29 13:56:00 2019-11-29 13:56:00 Registered Clinic 3 GEORGE JOVON [facility] [id number] [facility] 2019-11-20 05:00:00 2019-11-20 05:00:00 Registered Clinic 3 GEORGE, JOVON [facility] [id number] [facility] 2019-09-18 07:23:00 2019-09-18 07:23:00 Registered Surgical Day Care [facility] [id number] [facility] 2018-03-25 11:07:00 2018-03-25 15:56:00 Departed Emergency Room 1 DONNELL CAMP [facility] [id number] [facility] Results Test Description Test Time Test Comments Results Result Comments Source SURGICAL SPECIMENS 2020-04-24 15:35:00 RUN DATE: 04/24/20 [facility] *LIVE* PAGE 1 RUN TIME: 1535 Specimen Inquiry RUN USER: INTERFACE PATIENT: JAMES BETHEA LOC: [place] U #: [id number] AGE/SX: 84/F ROOM: RE04/18/20REG DR: Xavi Aviles MD : 37 BED: DIS: STATUS: RUIZ [facility] TLOC: SPEC #: [id number] RECD: 04/19/20 STATUS: JANETT LIMON #: [id number] SHASHANK: 04/19/[address] [facility] DR: Xavi Aviles MD ENTERED: 04/24/20 SP TYPE: SURG SPEC OTHR DR: Jovon Key Jr, MD ORDERED: GM LEVEL 4 CODES: [id number] - BREAST, NOS COPIES TO: Xavi Aviles MD [address] [place] [address] [address] [place] [address] Jovon Key Jr, MD [address] [facility] [address] [id number] PROCEDURES: GM LEVEL 4 (Incomplete) TISSUES: 1. [...] CONTINUED ON NEXT PAGE RUN DATE: 04/24/20 [facility] *LIVE* PAGE 2 RUN TIME: 1535 Specimen Inquiry RUN USER: INTERFACE SPEC #: [id number] PATIENT: JAMES BETHEA #[id number] (Continued) GROSS AND MICROSCOPIC (Continued) Specimen #3, [...] CONTINUED ON NEXT PAGE RUN DATE: 04/24/20 [facility] *LIVE* PAGE 3 RUN TIME: 1535 Specimen Inquiry RUN USER: INTERFACE SPEC #: [id number] PATIENT: JAMES BETHEA #[id number] (Continued)-- SYNOPTIC REPORT (Continued) Margins (DCIS): Lymphovascular invasion: Identified. Dermal Lymph-vascular invasion: Not identified. Microcalcification: Identified. *Lymph Nodes: NA. Treatment effect: N/A *TNM [id number] Tumor block(s): (A) (B). Signed SIGNATURE ON FILE Adiel Le MD 04/24/20 1535 END OF REPORT Novel Coronavirus 2019 Inhouse 2020-04-17 14:32:00 Test Item Novel Coronavirus 2019 Inhouse (test code = COVNONPUI) Negative Negative Novel Coronavirus 2019 Nxmfkkr6191-25-66 23:26:00* Test Item Value Reference Range Interpretation Comments Novel Coronavirus 2018 Inhouse (test code = COVNONPUI) Negative Negative - XR CHEST 2 [id number] 10:52:00 FAX: Xavi Hill MD [phone] [place]: St: PRE FAX: Jovon Metcalf Jr [phone] Name: LAKEJAMES PATSY [facility] : 1935 Age/S: 84/F [address] [place] [address] Blvd Unit #: [id number] Loc: [place] [address] Phys: aXvi Aviles MD Acct: [id number] Dis Date: Status: PRE [facility] PHONE #: [phone] Exam Date: 03/26/2020 1045 FAX #: [phone] Reason: PRE-OP LUMPECTOMY EXAMS: CPT CODE: [id number] XR CHEST 2 V 99390 EXAM: CHEST TWO VIEW HISTORY: 84-year-old female with left breast cancer, preoperative evaluation COMPARISON: None. FINDINGS: The lungs are clear. The cardiomediastinal silhouette is normal for projection. Aortic calcifications. No acute osseous abnormality. Partially visualized spinal fusion hardware. Deformity of the left shoulder likely related to remote trauma. IMPRESSION: 1. No acute cardiopulmonary abnormality. SL: [id number] at 1052 Reported and signed by: Gila Armstrong M.D. CC: Xavi Aviles MD; Jovon Key Jr, MD Technologist: Ivy Rodriguez RT(R) Trnsc Date/Time/By: 03/26/2020 (1995) : By: [email or web address] Orig Print D/T: S: 03/26/2020 (1248) PAGE 1 Signed Report COMPREHENSIVE METABOLIC [id number] 09:57:00* Test Item Value Reference Range Interpretation [...] ALKP) 69 IUnit/L 20-125 N CBC W/AUTO VGJR4522-37-60 09:43:00* Test Item Value Reference Range Interpretation [...] REQUIRED (test code = MDIFF) NO Blood Knqkfck6408-77-50 18:34:00* Test Item Value Reference Range Interpretation Comments Blood Culture (test code = 45443041) NO GROWTH AFTER 72 HOURS [facility] DallasUrine Kxenmuy5309-11-59 10:34:00* Test Item Value Reference Range Interpretation Comments Urine Culture (test code = 630-4) No Result Data Provided [facility] DallasDifferential Total Cells Counted 2020-01-22 09:04:00* Test Item Value Reference Range Interpretation Comments Differential Total Cells Counted (test code = Differen tial Total Cells Counted) 100 [facility] DallasNeutrophils % (Manual)2020-01-22 09:04:00 * Test Item Value Reference Range Interpretation Comments Neutrophils % (Manual) (test code = 88110-3) 68 40-74 [facility] DallasLymphocytes % (Manual)2020-01-22 09:04:00 * Test Item Value Reference Range Interpretation Comments Lymphocytes % (Manual) (test code = 737-7) 14 19-48 L [facility] DallasMonocytes % (Manual)2020-01-22 09:04:00* Test Item Value Reference Range Interpretation Comments Monocytes % (Manual) (test code = 744-3) 15 3.4-9.0 H [facility] DallasEosinophils % (Manual)2020-01-22 09:04:00 * Test Item Value Reference Range Interpretation Comments Eosinophils % (Manual) (test code = 714-6) 3 0-7 [facility] DallasPlatelet Cslrqgby8044-71-23 09:04:00* Test Item Value Reference Range Interpretation Comments Platelet Estimate (test code = 78334-2) SLIGHTLY INCREASED [facility] DallasPlatelet Morphology Tjjglsi2668-49-90 09:04:00* Test Item Value Reference Range Interpretation Comments Platelet Morphology Comment (test code = 04070-8) NORMAL [facility] DallasRed Cell Morphology Iipfkca7515-36-53 09:04:00* Test Item Value Reference Range Interpretation Comments Red Cell Morphology Comment (test code = 6742-1) NORMAL [facility] Icxeg8260-89-18 06:04:00* Test Item Value Reference Range Interpretation Comments Sodium Level (test code = 2951-2) 130 136-145 L [facility] DallasPotassium Faqiy4593-11-46 06:04:00* Test Item Value Reference Range Interpretation Comments Potassium Level (test code = 2823-3) 3.8 3.5-5.1 [facility] DallasChloride Rncnd2296-07-23 06:04:00* Test Item Value Reference Range Interpretation Comments Chloride Level (test code = 2075-0) 99 98-107 [facility] DallasCarbon Dioxide Pcnib2204-47-79 06:04:00* Test Item Value Reference Range Interpretation Comments Carbon Dioxide Level (test code = 2028-9) 26 22-29 [facility] DallasAnion Zhw4003-40-95 06:04:00* Test Item Value Reference Range Interpretation Comments Anion Gap (test code = 95155-6) 8.8 8-16 [facility] DallasBlood Urea Qrldknjo4790-41-35 06:04:00* Test Item Value Reference Range Interpretation Comments Blood Urea Nitrogen (test code = 3094-0) 10 7-26 [facility] DallasCreatinine2020-03-30 06:04:00* Test Item Value Reference Range Interpretation Comments Creatinine (test code = 2160-0) 0.63 0.57-1.11 [facility] DallasBUN/Creatinine Dlxdc5829-98-68 06:04:00* Test Item Value Reference Range Interpretation Comments BUN/Creatinine Ratio (test code = 3097-3) 16 6-25 [facility] DallasEstimat Glomerular Filtration Rate 2020-01-22 06:04:00* Test Item Value Reference Range Interpretation Comments Estimat Glomerular Filtration Rate (test code = 496627540) > 60 >60 Ranges were taken from the National Kidney Disease Education Program and the [facility] Kidney Foundation literature.Reference ranges:60 or greater: Rqazxy48-32 ( for 3 consecutive months): Chronic kidney disease 15 or less: Kidney failureTexas Health Presbyterian DallasGlucose Xyeph8401-48-22 06:04:00* Test Item Value Reference Range Interpretation Comments Glucose Level (test code = XYV8235) 106 74-118 [facility] DallasCalcium Qwzsq0557-16-72 06:04:00* Test Item Value Reference Range Interpretation Comments Calcium Level (test code = 64159-0) 7.8 8.4-10.2 L [facility] DallasTotal Hbwrqcizo4783-19-49 06:04:00* Test Item Value Reference Range Interpretation Comments Total Bilirubin (test code = 1975-2) 0.3 0.2-1.2 [facility] DallasAspartate Amino Transf (AST/SGOT) 2020-01-22 06:04:00* Test Item Value Reference Range Interpretation Comments Aspartate Amino Transf (AST/SGOT) (test code = Aspartate Amino Transf (AST/SGOT)) 29 5-34 [facility] DallasAlanine Aminotransferase (ALT/SGPT) 2020-01-22 06:04:00* Test Item Value Reference Range Interpretation Comments Alanine Aminotransferase (ALT/SGPT) (test code = 1742-6) 35 0-55 [facility] DallasTotal Rhqjdec2265-41-55 06:04:00* Test Item Value Reference Range Interpretation Comments Total Protein (test code = 2885-2) 5.1 6.5-8.1 L [facility] DallasAlbumin2020-03-30 06:04:00* Test Item Value Reference Range Interpretation Comments Albumin (test code = 1751-7) 2.2 3.5-5.0 L [facility] DallasGlobulin2020-03-30 06:04:00* Test Item Value Reference Range Interpretation Comments Globulin (test code = 69723-7) 2.9 2.3-3.5 [facility] DallasAlbumin/Globulin Rpbyg1023-79-85 06:04:00 * Test Item Value Reference Range Interpretation Comments Albumin/Globulin Ratio (test code = 1759-0) 0.8 0.8-2.0 [facility] DallasAlkaline Fglkjnhurcx3756-57-18 06:04:00* Test Item Value Reference Range Interpretation Comments Alkaline Phosphatase (test code = 6768-6) 68 40-150 [facility] DallasWhite Blood Ofosj2213-60-89 05:26:00* Test Item Value Reference Range Interpretation Comments White Blood Count (test code = 6690-2) 11.00 4.8-10.8 H [facility] DallasRed Blood Oequm9120-12-03 05:26:00* Test Item Value Reference Range Interpretation Comments Red Blood Count (test code = 789-8) 3.10 3.6-5.1 L [facility] DallasHemoglobin2020-03-30 05:26:00* Test Item Value Reference Range Interpretation Comments Hemoglobin (test code = 66855-0) 9.3 12.0-16.0 L [facility] DallasHematocrit2020-03-30 05:26:00* Test Item Value Reference Range Interpretation Comments Hematocrit (test code = 4544-3) 28.6 34.2-44.1 L [facility] DallasMean Corpuscular Navgqd6289-51-18 05:26:00* Test Item Value Reference Range Interpretation Comments Mean Corpuscular Volume (test code = 787-2) 92.3 81-99 [facility] DallasMean Corpuscular Zejwmymbtc4109-74-10 05:26:00* Test Item Value Reference Range Interpretation Comments Mean Corpuscular Hemoglobin (test code = 785-6) 30.0 28-32 [facility] DallasMean Corpuscular Hemoglobin Concent 2020-01-22 05:26:00* Test Item Value Reference Range Interpretation Comments Mean Corpuscular Hemoglobin Concent (test code = 786-4) 32.5 31-35 [facility] DallasRed Cell Distribution Eskcd5177-23-79 05:26:00* Test Item Value Reference Range Interpretation Comments Red Cell Distribution Width (test code = 54642-7) 13.3 11.7 -14.4 [facility] DallasPlatelet Stiub4110-20-14 05:26:00* Test Item Value Reference Range Interpretation Comments Platelet Count (test code = 777-3) 547 140-360 H [facility] DallasNeutrophils (%) (Auto)2020-01-22 05:26:00 * Test Item Value Reference Range Interpretation Comments Neutrophils (%) (Auto) (test code = 39911-1) 60.3 38.7-80.0 [facility] DallasLymphocytes (%) (Auto)2020-01-22 05:26:00 * Test Item Value Reference Range Interpretation Comments Lymphocytes (%) (Auto) (test code = 736-9) 16.1 18.0-39.1 L [facility] DallasMonocytes (%) (Auto)2020-01-22 05:26:00* Test Item Value Reference Range Interpretation Comments Monocytes (%) (Auto) (test code = 5905-5) 16.4 4.4-11.3 H [facility] DallasEosinophils (%) (Auto)2020-01-22 05:26:00 * Test Item Value Reference Range Interpretation Comments Eosinophils (%) (Auto) (test code = 713-8) 5.6 0.0-6.0 [facility] DallasBasophils (%) (Auto)2020-01-22 05:26:00* Test Item Value Reference Range Interpretation Comments Basophils (%) (Auto) (test code = 706-2) 1.1 0.0-1.0 H [facility]byterian DallasIM GRANULOCYTES %2020-01-22 05:26:00* Test Item Value Reference Range Interpretation Comments IM GRANULOCYTES % (test code = IM GRANULOCYTES %) 0.5 0.0- 1.0 [facility] DallasNeutrophils # (Auto)2020-01-22 05:26:00* Test Item Value Reference Range Interpretation Comments Neutrophils # (Auto) (test code = 751-8) 6.6 2.1-6.9 [facility] DallasLymphocytes # (Auto)2020-01-22 05:26:00* Test Item Value Reference Range Interpretation Comments Lymphocytes # (Auto) (test code = 42210-2) 1.8 1.0-3.2 [facility] DallasMonocytes # (Auto)2020-01-22 05:26:00* Test Item Value Reference Range Interpretation Comments Monocytes # (Auto) (test code = 742-7) 1.8 0.2-0.8 H [facility] DallasEosinophils # (Auto)2020-01-22 05:26:00* Test Item Value Reference Range Interpretation Comments Eosinophils # (Auto) (test code = 711-2) 0.6 0.0-0.4 H [facility] DallasBasophils # (Auto)2020-01-22 05:26:00* Test Item Value Reference Range Interpretation Comments Basophils # (Auto) (test code = 704-7) 0.1 0.0-0.1 [facility] DallasAbsolute Immature Granulocyte (auto 2020-01-22 05:26:00* Test Item Value Reference Range Interpretation Comments Absolute Immature Granulocyte (auto (raman t code = Absolute Immature Granulocyte (auto) 0.06 0-0.1 [facility] DallasCoronavirus (PCR)2020-01-21 19:36:00* Test Item Value Reference Range [...] to perform high complexity tests.Specimen sent to [facility] and testing performed by [facility] [address] [place] [address] [phone] Director: Bran Elizabeth M.D.CLIA # 4 [id number] Health Presbyterian DallasCreatine Kinase CK2015-85-30 14:37:00* Test Item Value Reference Range Interpretation Comments Creatine Kinase MB (test code = 66662-5) 2.20 0-5.0 [facility] DallasTroponin Q2051-71-68 14:37:00* Test Item Value Reference Range Interpretation Comments Troponin I (test code = MBV3792) < 0.001 0-0.300 [facility] DallasCreatine Uzwkhu7498-92-27 14:25:00* Test Item Value Reference Range Interpretation Comments Creatine Kinase (test code = 2157-6) 197 29-168 H [facility] SINGLE (PORTABLE)2020-01-20 09:07:00 [facility] [address] [address] Patient Name: JAMES BETHEA MR #: [id number] : 1935 Age/Sex: 84/F Req #: [id number] Adm Physician: DIANE ALDRICH MD Ordered by: BRENT RINCON MD Report #: [id number] Location: [facility] Room/Bed: [place] [address] Procedure: [id number] DX/ CHEST SINGLE (PORTABLE) Exam Date: 01/20/20 Exam Heath e: 0800 REPORT STATUS: Signed EX AMINATION: CHEST SINGLE (PORTABLE) INDICATION: PNEMONIA 2 [id number] 0800 Y COMPARISON: CT chest 01/19/2020 FINDINGS [...] (test code = 764-1) 1 [facility] DallasThyroid Stimulating Hormone (TSH) 2020-01-20 06:00:00* Test Item Value Reference Range Interpretation Comments Thyroid Stimulating Hormone (TSH) (test code = 09609-1) 0.588 0.350-4.940 [facility] DallasMagnesium Nntua0903-85-93 05:44:00* Test Item Value Reference Range Interpretation Comments Magnesium Level (test code = 88859-0) 1.4 1.3-2.1 [facility] DallasHemoglobin A1c Vlxvooa3679-65-99 05:43:00 * Test Item Value Reference Range Interpretation Comments Hemoglobin A1c Percent (test code = Hemoglobin A1c Percent) 5.5 4.0-7.0 [facility] DallasCT CHEST YB3530-58-06 20:47:00 [facility] [address] [place] [address] Patient Name: JAMES BETHEA MR #: [id number] : 1935 Age/Sex: 84/F Req #: [id number] Adm Physician: DIANE ALDRICH MD Ordered by: BRENT RINCON MD Report #: [id number] Location: [facility] Room/Bed: [place] [address] Procedure: [id number] CT/ CT CHEST WO Exam Date: 01/19/20 [...] JESUS IRENE MD 50 Tra nscribed By: ERROL on 01/19/202050 COPY TO: BRENT RINCON MD B-Type Natriuretic Oqbqzvh8888-23-01 18:40:00* Test Item Value Reference Range Interpretation Comments B-Type Natriuretic Peptide (test code = 19771-2) 47.3 0-100 [facility] DallasInfluenza Virus Types A,B Antigen 2020-01-19 18:12:00* Test Item Value Reference Range Interpretation Comments Influenza Virus Types A,B Antigen (test code = 92327-1) NEGATIVE NEGATIVE [facility] DallasGroup A Streptococcus Kbjmks4030-62-26 18:12:00* Test Item Value Reference Range Interpretation Comments Group A Streptococcus Screen (test code = 70079-8) NEGATIVE NEG ATIVE [facility] DallasProthrombin Hryd0625-33-39 18:09:00* Test Item Value Reference Range Interpretation Comments Prothrombin Time (test code = 5902-2) 14.8 11.9-14.5 H [facility] DallasProthromb Time International Ratio 2020-01-19 18:09:00* Test Item Value Reference Range Interpretation Comments Prothromb Time International Ratio (test code = 6301-6) 1.09 Oral Anticoagulant Therapy INR Values:1. Low Intensity Therapy 1.5 - 2.02 . Moderate Intensity Therapy 2.0 - 3.03. High Intensity Therapy(1) 2.5 - 3. 54. High Intensity Therapy(2) 3.0 - 4.05. Panic Value INR > 5.0 [facility] DallasActivated Partial Thromboplast Time 2020-01-19 18:09:00* Test Item Value Reference Range Interpretation Comments Activated Partial Thromboplast Time (test code = 08794-2) 28.9 23.8-35.5 [facility] DallasLactic Acid Qkrul2966-74-52 17:44:00* Test Item Value Reference Range Interpretation Comments Lactic Acid Level (test code = Lactic Acid Level) 1.1 0.5- 2.0 [facility] DallasCHEST SINGLE (PORTABLE)2020-01-19 17:40:00 [facility] [address] [place] [address] Patient Name: JAMES BETHEA MR #: [id number] : 1935 Age/Sex: 84/F Req #: [id number] Adm Physician: Ordered by: KYLE NUNEZ [employer]QUIPMENT INST[employer]ER Report #: [id number] Location: ER Room/Bed: Procedure: [id number] DX /CHEST SINGLE (PORTABLE) Exam Date: 01/19/20 [...] IRENE MD 40 COPY TO: SHAWN NUNEZ [employer] EQUIPMENT INSTALLER Urine Xvgwr4872-06-37 17:33:00* Test Item Value Reference Range Interpretation Comments Urine Color (test code = 5778-6) YELLOW YELLOW [facility] DallasUrine Sismoel2705-24-80 17:33:00* Test Item Value Reference Range Interpretation Comments Urine Clarity (test code = 05134-8) CLEAR CLEAR [facility] DallasUrine Specific Ilhtmkd2209-01-58 17:33:00 * Test Item Value Reference Range Interpretation Comments Urine Specific [address] (test code = 5811-5) 1.025 1.010-1.02 5 [facility] DallasUrine [id number] 17:33:00* Test Item Value Reference Range Interpretation Comments Urine pH (test code = 93991-7) 6.5 5-7 [facility] DallasUrine Leukocyte Hosimyue6891-29-36 17:33:00* Test Item Value Reference Range Interpretation Comments Urine Leukocyte Esterase (test code = 5799-2) NEGATIVE NEGATIVE [facility] DallasUrine Xmqpqny7022-57-83 17:33:00* Test Item Value Reference Range Interpretation Comments Urine Nitrite (test code = 62370-8) NEGATIVE NEGATIVE [facility] DallasUrine Xhxpfjy8039-69-48 17:33:00* Test Item Value Reference Range Interpretation Comments Urine Protein (test code = 5804-0) 1+ NEGATIVE H [facility] DallasUrine Glucose (UA)2020-01-19 17:33:00* Test Item Value Reference Range Interpretation Comments Urine Glucose (UA) (test code = 2349-9) NEGATIVE NEGATIVE [facility] DallasUrine Wesojqi7465-04-78 17:33:00* Test Item Value Reference Range Interpretation Comments Urine Ketones (test code = 59259-8) 2+ NEGATIVE H [facility] DallasUrine Icfvihhhbjbp1753-72-53 17:33:00* Test Item Value Reference Range Interpretation Comments Urine Urobilinogen (test code = 71393-6) 0.2 0.2-1 [facility] DallasUrine Uqhcejhhd9992-76-39 17:33:00* Test Item Value Reference Range Interpretation Comments Urine Bilirubin (test code = 1978-6) NEGATIVE NEGATIVE [facility] DallasUrine Sqcnz4783-09-45 17:33:00* Test Item Value Reference Range Interpretation Comments Urine Blood (test code = 57120-1) 2+ NEGATIVE [facility] DallasUrine YWC1994-90-82 17:33:00* Test Item Value Reference Range Interpretation Comments Urine WBC (test code = 5821-4) 6-10 0-5 [facility] [id number] 17:33:00* Test Item Value Reference Range Interpretation Comments Urine RBC (test code = 80395-4) 6-10 0-5 [facility] [id number] 17:33:00* Test Item Value Reference Range Interpretation Comments Urine Bacteria (test code = 66803-4) RARE NONE [facility] Epithelial [id number] 17:33:00 * Test Item Value Reference Range Interpretation Comments Urine Epithelial Cells (test code = 06675-9) FEW NONE [facility] UNI [id number] 16:04:00 [place] [address] Patient Name: JAMES BETHEA MR #: [id number] : 1935 Age/Sex: 84/F Req #: [id number] Adm Physician: Ordered by: JOVON KEY MD Report #: [id number] Location: Room/Bed: Procedure: [id number] MG /MAMMOGRAPHY DIGITAL DX UNI LT Exam Date: 11/29/19 E xam Time: 1500 REPORT STATUS: Kristin d #[id number] - MGDXLT #UNILATERAL LEFT DIGITAL DIAGNOSTIC MAMMOGRAM POST-PROCEDURE IMAGING FOR MARKER PLACEMENT: 11/29/2019 Comparison is made to ex ams dated: 11/29/2019 ultrasound biopsy and 11/17/2019 mammogram - [facility]. Current study contains 2 films. The tissue of the le ft breast is heterogeneously dense. This may lower the sensitivity of mammogr aphy. A clip is noted in the left breast at the biopsy site. IMPRE SSION: POST PROCEDURE MAMMOGRAM FOR MARKER PLACEMENT KYLE CHAUDHARY M.D. ct/:11/29/2019 16:36:14 Bookkeeping Service Sales Agent: Yudi Hernandez RT (R)(M), [facility] Mammogram BI-RADS: Post-procedur e mammogram for marker placement Dictated By: KYLE CHAUDHARY MD Electronical ly Signed By: KYLE CHAUDHARY MD on 11/29/191635 Transcribed By: HEIDI on 11/29 COPY TO: JOVON KEY MD BX BRST ADD LESION US [id number] 16:04:00 [address], [place], [place] [address] Patient Name: JAMES BETHEA MR #: [id number] : 1935 Age/Sex: 84/F Req #: [id number] Adm Physician: Ordered by: JOVON KEY MD Report #: [id number] Location: US Room/Bed: Procedure: [id number] US /BX BRST ADD LESION US IMAG-LT Exam Date: Exam Time : REPORT STATUS: Signed THIS RE PORT HAS BEEN AMENDED. #[id number] - BXBRADUSLT ULTRASOUND GUIDED BIOPS Y LEFT BREAST WITH MARKING DEVICE INSERTED: 11/29/2019 PATIENT CONSENT: Jung ALMODOVAR jessica, a time out was performed, correct site was localized and the patient was consented. Correlation is made to exams dated: 11/17 mammogram and 11/17/2019 ultrasound - [facility] . An ultrasound guided biopsy using [...] ct/:11/29/2019 16:35:24 Im aging Technologist: GISELLA PHELAN [facility], [facility] 19 804LT AMENDMENT: 12/08/2019 KYLE CHAUDHARY M.D. Pathology report from the USG guided biopsy has become available. The report indicates: Invasi ve lobular carcinoma. Please refer to the full report, or consult [facility] pathologist, for additional details. Recommend surgical consultation. I d iscussed the results of the case with Mode Restrepo in Dr. Key's office at 14:25 on 12-08-2019. Dictated By: KYLE CHAUDHARY MD Electronical ly Signed By: KYLE CHAUDHARY MD on 11/29/19 1635 Transcribed By: HEIDI on 12/08 1419 COPY TO: JOVON KEY MD MAMMOGRAPHY DIGITAL DX [id number] 15:38:00 [facility] [address] [place] [address] Patient Name: JAMES BETEHA MR #: [id number] : 1935 Age/Sex: 84/F Req #: [id number] Adm Physician: Ordered by: JOVON KEY MD Report #: [id number] Location: MAMMO Room/Bed: Procedure: [id number] MG /MAMMOGRAPHY DIGITAL DX BILAT Exam Date: 11/17/19 Ex am Time: 1504 REPORT STATUS: Signed #[id number] - MGDXBIL #BILATERAL DIGITAL DIAGNOSTIC MAMMOGRAM WITH [...] call was made to the physician's of [facility]. The findings were discussed with the patient and her family member. The patient will be contacted by the Mammography Department to schedule this vanessa ointment. KYLE CHAUDHARY M.D. ct/:11/17/2019 16:05:59 Bookkeeping Service Sales Agent: Yudi BLANCHARD (R)(Aayush), [facility] er letter sent: Biopsy Required Mammogram BI-RADS: 4a Suspicious abnormali ty - low suspicion for malignancy Dictated By: KYLE CHAUDHARY MD [facility] Signed By: KYLE CHAUDHARY MD on 11/17/19 1605 Transcribed By: HEIDI on 10/26 02/11 1605 COPY TO: JOVON KEY MD BREAST LIMITED [facility] 2019-11-17 15:33:00 [place] [address] Patient Name: JAMES BETHEA MR #: [id number] : 1935 Age/Sex: 84/F Req #: [id number] [facility] Physician: Ordered by: JOVON KEY MD Report #: [id number] Location: MAMMO Room/Bed: Procedure: [id number] US /US BREAST LIMITED LEFT Exam Date: Exam Time: REPORT STATUS: Signed #[id number] - USBRELIMLT ULTRASOUND OF THE LEFT BREAST : 11/17/2019 Comparison is mad e to exam dated: 11/17/2019 mammogram - [facility]. Real-time ultrasound was performed on the [...] is recommended. A phone call was m joycelyn to the physician's office. The findings were discussed with the patient and her family member. The patient has been or will be contacted. SHAWN CHAUDHARY M.D. ct/:11/17/2019 16:07:25 Bookkeeping Service Sales Agent: GISELLA Smyth RDAR, [facility] letter sent: Biopsy Required Ul trasound BI-RADS: 4a Suspicious abnormality - low suspicion for malignancy D ictated By: KYLE CHAUDHARY MD 1607 COPY TO: CARIE KEY MD Stool [id number] 00:46:00* Test Item Value Reference Range Interpretation Comments Stool Calprotectin (test code = 61466-7) 23 0-120 Concentration Interpretation Follow-Up<16 - 50 ug/g Normal None>50 -120 ug/g Borderline Re-evaluate in 4-6 weeks >120 ug/g Abnormal Repeat as clinically indicatedPerformed at: - [facility] [id number] Director: Dona Thomas MD, Phone: [phone] [facility] (LAB)2019-09-18 13:50:00* Test Item Value Reference Range Interpretation Comments Stool Lactoferrin (LAB) (test code = 42363-7) POSITIVE NEGATIVE H Testing on stool aspirate specimens is outside house carpenter claims since specime n type not validated on this assay.[facility] Clostridium Difficile Toxin A & [id number] 13:50:00* Test Item Value Reference Range Interpretation Comments Clostridium Difficile Toxin A & B (test code = 903084760) NEGATIVE NEGATIVE Testing on stool aspirate specimens is outside house carpenter claims since specime n type not validated on this assay.[facility] [address] [place] [address] Patient Name: JAMES BETHEA MR #: [id number] : 1935 Age/Sex: 82/F Req #: [id number] Adm Physician: Ordered by: DONNELL CAMP MD Report #: [id number] Location: ER Room/Bed: Procedure: [id number] DX/SACRUM COCCYX Exam Da te: 03/25/18 Exam [...] DONNELL CAMP MD PELVIS AP 1-2 VIEWS [place] [address] Patient Name: JAMES BETHEA MR #: [id number] : 1935 Age/Sex: 82/F Req #: [id number] Adm Physician: Ordered by: DONNELL CAMP MD Report #: [id number] Location: ER Room/Bed: Procedure: [id number] DX/PELVIS AP 1-2 VIEWS Exa m Date: [...]
--- NOTE | 2020-05-27 22:10 | Diagnostic Imaging Report ---
CT BRAIN WO HISTORY: Syncope COMPARISON: None. Technique: Noncontrast axial scans were obtained from skull base to the vertex. Coronal and sagittal reconstructions obtained from the axial data. One or more of the following dose reduction techniques were used: Automated exposure control, adjustment of the mA and/or kV according to patient size, and/or utilization of iterative reconstruction technique. DISCUSSION: Scalp/Skull: Unremarkable. Brain sulci: Mildly prominent. Ventricles: Compensatory dilatation. Extra-axial spaces: No masses or fluid collections. Carotid and vertebral artery calcifications are present. Parenchyma: Mild bilateral deep white matter hypodensity is likely chronic microvascular ischemic change. Questionable old small cortical infarct in the left inferior cerebellum. Otherwise, no masses, hemorrhage, or large vascular territory acute infarct. Dural sinuses: No abnormal densities. Sellar/Suprasellar region: Intact. Skull base: Intact. Incidental findings: None. IMPRESSION: 1. No acute intracranial abnormalities. 2. Questionable old small cortical infarct in the left inferior cerebellum. 3. Mild supratentorial chronic microvascular ischemic change. Mild generalized cerebral volume loss. Signed by: Dr. Billy Fleming M.D. on 05/27/2020 10:07 PM
[2020-05-27 22:28] VITALS: BP 114/57
[2020-05-27] MEDS ORDERED: ACETAMINOPHEN 325 MG TAB PO PRN (22:30)
[2020-05-27] MEDS ORDERED: SODIUM CHLORIDE 0.9% 1000ML 1,000 ML IV STA (22:44)
[2020-05-27 23:00] VITALS: BP 114/57
[2020-05-28] VITALS (8 sets, daily range): BP systolic 100–125; BP diastolic 47–63
--- NOTE | 2020-05-28 07:50 | NUR ---
The pt. is in bed and responsive to verbal stimuli. She denies pain or discomfort at this time.
[2020-05-28] MEDS ORDERED: POLYETHYLENE GLYCOL 3350 17 GM PACK PO PRN (14:45)
[2020-05-28] MEDS ORDERED: ONDANSETRON HCL INJ 2MG/ML 2ML 2 MG/ML VIAL IV PRN (14:45)
[2020-05-28] MEDS ORDERED: TEMAZEPAM 7.5 MG CAP PO PRN (14:45)
[2020-05-28] MEDS ORDERED: HYDRALAZINE HCL 20 MG/ML VIAL IV PRN (14:45)
--- NOTE | 2020-05-28 16:00 | NUR ---
The CALCIMINER requested orthostatics and was advised that the pt was unable to stand. Lying 114/50 97% 93 hr. Sitting 132/64 98hr !00%.
[2020-05-28] MEDS: SODIUM CHLORIDE 0.9% 1000ML 1,000 ML IV SCH (17:24)
[2020-05-28] MEDS: FAMOTIDINE 20 MG/2 ML VIAL IV SCH (17:24)
[2020-05-28] MEDS: DOCUSATE SODIUM 100 MG CAP PO SCH (17:25)
[2020-05-28] MEDS ORDERED: CEFTRIAXONE SOD 1 GM/NS 50 ML 50 ML IV SCH (18:00)
--- NOTE | 2020-05-28 19:30 | NUR ---
BEDSIDE SHIFT REPORT RECEIVED FROM DAY RN. PT IS ALERT AND ORIENTED X3. PT DENIES PAIN. CLIFTON 14F TO GRAVITY. PT CHANGES CATH MONTHLY OUTPT WITH DR OROPEZA. TELE ON. RESPIRATIONS ARE EVEN AND UNLABORED. RT 20 G PIV AC. CALL LIGHT WITHIN REACH. BED IN LOW POSITION.
[2020-05-28] MEDS ORDERED: TEMAZEPAM 15 MG CAP PO PRN (21:00)
[2020-05-28] MEDS: CLONAZEPAM 0.5 MG TAB PO SCH (22:20)
[2020-05-28] MEDS: ACETAMINOPHEN 325 MG TAB PO SCH (22:20)
--- NOTE | 2020-05-28 23:56 | History and Physical ---
CONSULTING PHYSICIAN: Shubham Walker MD PRIMARY CARE PHYSICIAN: Jovon Key MD CHIEF COMPLAINT: Fever. HISTORY OF PRESENT ILLNESS: The patient is an 84-year-old female with indwelling Calle catheter that has had a fever greater than 100.0 at home. Has had a history of UTIs, but just finished antibiotics for UTI and had called Dr. Walker's office, subsequently referred to the emergency department for further evaluation. Per the emergency department physician's note, the patient took Tylenol prior to arrival here, had a syncopal episode where she was in a wheelchair and eyes rolled back into the back of her head. She was seen by Dr. Mendez and has been on aspirin 81 mg and denies hitting her head. PAST MEDICAL HISTORY: Hypertension, urinary tract infections, endometrial cancer, currently has active left breast cancer, tachycardia, osteoporosis, neurogenic bladder, self caths at home, left footdrop, rash with recent biopsy by chute operator, possibly due to the multiple different antibiotic uses for UTIs. Recently, she fell in 2018, has been ambulating with a walker and is unable to walk without a walker. In 2004 had left shoulder fracture. PAST SURGICAL HISTORY: Appendectomy, hysterectomy, knee replacement, cataract removal, spinal fusion, T12-S1 titanium rods placed in the back, torn meniscus, carpal tunnel surgery. PAST FAMILY HISTORY: Father at age 91 with bladder cancer. Mother at age 94, had congestive heart failure. She has a sister with diabetes mellitus and a sister age 86 with dementia. Brother had scoliosis. SOCIAL HISTORY: Smoked in her 20s for about 4 years, socially. Alcohol, drank some in her 20s, light. No history of illicit drug use. ALLERGIES: OXYBUTYNIN. HOME MEDICATIONS: Anastrozole 1 mg daily, aspirin 81 mg daily, clonazepam 2.5 mg at night, dicyclomine hydrochloride 10 mg p.r.n., ibandronic acid 150 mg once a month, metoprolol succinate 12.5 mg daily, Myrbetriq 50 mg daily, spironolactone 50 mg, daily, multivitamin 2 tablets daily, Lasix 20 mg daily every morning, cetirizine 10 mg for 30 days. REVIEW OF SYSTEMS: A 14-point review of systems completed. The patient's only complaint is her recent fever, some left shoulder pain and mild cough. The last bowel movement was Wednesday, 05/25. PHYSICAL EXAMINATION: VITAL SIGNS: Temperature 98.4, heart rate 79, blood pressure 100/55, respirations 18, and oxygen saturation 100% on room air. T-max 100.2. Height 5 feet 3 inches, weight 100 pounds, BMI of 17.71. GENERAL: Supine in bed. Head of bed elevated. Eating dinner. No apparent distress. LUNGS: Clear to auscultation. Respiratory pattern even, nonlabored. No supplemental oxygen. HEENT: EOMI. NECK: Supple. CARDIOVASCULAR: Regular rate and rhythm. No murmur. Normal saline infusing at 150 mL an hour into peripheral IV. ABDOMEN: Bowel sounds positive. Soft, nontender. Calle catheter with yellow urine. EXTREMITIES: No pitting edema. No clubbing, cyanosis, or signs or symptoms of DVT. NEUROLOGIC: GCS 15. Nonfocal. LABORATORY DATA: WBC 19.28, hemoglobin 11, hematocrit 33, platelets 691. Sodium 128, potassium 4, chloride 92, CO2 of 24, anion gap 16, BUN 25, creatinine 0.97, estimated GFR 55, glucose 105, lactic acid 1.0, calcium 8.6, total bilirubin 0.4, AST 34, ALT 32, alkaline phosphatase 95. Creatine kinase 90, CK-MB 1.7, troponin I 0.03. Total protein 6.8, albumin 3.0. Urinalysis 1+ for protein, negative for ketones and moderate amount of blood, positive nitrite, small amount of leukocyte esterase, RBC 11-20, WBC 6-10. Urine bacteria moderate. PT 14.8, INR 1.1, PTT 30.9. Coronavirus PCR collected today on 05/28 is pending. Urine culture collected yesterday shows gram-negative bacillus, Enterococcus species. Blood cultures x2 pending. CT of the brain done 05/27 showed no acute intracranial abnormalities. Questionable old small cortical infarct in the left inferior cerebellum. Mild supratentorial chronic microvascular ischemic change. Mild generalized cerebral blood volume loss. On 01/20/2020. Hemoglobin A1c 5.5%, magnesium 1.4, and TSH 0.588. ASSESSMENT AND PLAN: 1. Severe urinary tract infection, present on admission, with a history of urinary tract infections. The patient is currently on Rocephin. She had a dose in the ER. She will continue daily Rocephin for now and continue normal saline at 75 mL an hour. 2. Severe sepsis due to urinary tract infection, present on admission. WBCs 19.2, platelets 691, neutrophils 81.4%. Continue Rocephin and await final urine culture and sensitivity results. 3. Hypotension, likely due to #2 with history of hypertension. We will hold spironolactone and Lasix. Continue IV fluids. 4. Neurogenic bladder with urinary retention, indwelling Calle catheter. Urology following. Maintain Calle catheter for now. 5. Active left breast cancer. Continue on anastrozole. 6. Left foot drop, ambulatory dysfunction. PT eval and treat. 7. Acute hyponatremia, sodium 128. Continue normal saline IV fluids. Monitor sodium level. 8. Syncope once on 05/26/2020. CT of the brain was negative. We will check orthostatic vital signs. Echocardiogram and bilateral carotid Doppler. 9. Prophylaxis. Pepcid and SCDs. Time spent, 60 minutes. Billing code 74463. Dictated by Quan Rios, HERNANDEZ Tate Aponte MD HWP/MODL /[id number]
[2020-05-29] VITALS (8 sets, daily range): BP systolic 85–120; BP diastolic 45–62
[2020-05-29] MEDS: SODIUM CHLORIDE 0.9% 1000ML 1,000 ML IV SCH ×2 (04:05→21:37)
[2020-05-29 05:47] LABS: BASOPHILS # (AUTO) 0.1 (0.0-0.1); BASOPHILS % 0.9 % (0.0-1.0); EOSINOPHILS # (AUTO) 0.7 (0.0-0.4); HEMOGLOBIN 9.4 g/dL (12.0-16.0); LYMPHOCYTES # (AUTO) 1.6 (1.0-3.2); LYMPHOCYTES % 12.6 % (18.0-39.1); MEAN CORPUSCULAR HEMOGLOBIN 28.3 pg (28-32); MEAN CORPUSCULAR HGB CONC 32.4 g/dL (31-35); MEAN CORPUSCULAR VOLUME 87.3 fL (81-99); MONOCYTES # (AUTO) 1.9 (0.2-0.8); NEUTROPHILS % 65.1 % (38.7-80.0); PLATELET COUNT 551 x10e3/uL (140-360); RED BLOOD COUNT 3.32 x10e6/uL (3.6-5.1); RED CELL DISTRIBUTION WIDTH 13.6 % (11.7-14.4)
[2020-05-29 06:09] LABS: ALANINE AMINOTRANSFERASE 24 IU/L (0-55); ALBUMIN 2.2 g/dL (3.5-5.0); ALBUMIN/GLOBULIN RATIO 0.6 (0.8-2.0); ALKALINE PHOSPHATASE 83 IU/L (40-150); ANION GAP 10.2 mmol/L (8-16); BLOOD UREA NITROGEN 16 mg/dL (7-26); BUN/CREATININE RATIO 20 (6-25); CARBON DIOXIDE 25 mmol/L (22-29); CHLORIDE 99 mmol/L (98-107); CHOLESTEROL 92 MD/DL (0-199); EST GLOMERULAR FILTRATION RATE > 60 ML/MIN (60-); GLUCOSE 95 mg/dL (74-118); HDL CHOLESTEROL 23 MG/DL (40-60); LDL CHOLESTEROL 51 MG/DL (60-130); MAGNESIUM 1.7 MG/DL (1.3-2.1); POTASSIUM 4.2 mmol/L (3.5-5.1); SODIUM 130 mmol/L (136-145); TRIGLYCERIDES 88 MG/DL (0-149)
[2020-05-29] MEDS: ASPIRIN 81 MG CHEW TAB PO SCH (08:59)
[2020-05-29] MEDS: DOCUSATE SODIUM 100 MG CAP PO SCH ×2 (08:59→16:25)
[2020-05-29] MEDS: ACETAMINOPHEN 325 MG TAB PO SCH ×3 (08:59→21:25)
[2020-05-29] MEDS: FAMOTIDINE 20 MG/2 ML VIAL IV SCH ×2 (08:59→17:55)
[2020-05-29] MEDS: (Mirabegron (Myrbetriq) 50 MG) PO SCH (09:00)
--- NOTE | 2020-05-29 10:40 | NUR ---
Notified Dr.Hampel Ureña of urine culture results. Aware T100.4 on 05/28/202099. See orders
--- NOTE | 2020-05-29 12:44 | NUR ---
assistant professor of biochemistry visited with the pt and initiated relationship of pastoral support , hope building and prayer . pt appreciated assistant professor of biochemistry visit and expressed peace chaplain Stu
[2020-05-29] MEDS: CIPROFLOXACIN 200 MG/D5W 100ML 100 ML IV SCH ×2 (12:51→21:25)
--- NOTE | 2020-05-29 19:10 | NUR ---
BEDSIDE SHIFT REPORT RECEIVED. PATIENT IS RESTING IN BED, AAOX3. RESP EVEN AND UNLABORED.NO ACUTE DISTRESS NOTED. TELE IN PLACE. CLIFTON IN PLACE. EDUCATED PT ABOUT FALL PRECAUTIONS. PT VERBALIZED UNDERSTANDING. CALL LIGHT WITH IN EASY REACH. INSTRUCTED PT TO USE CALL LIGHT FOR ALL THE NEEDS. BED IS LOW AND LOCKED. SIDE RAILS X2. BED ALARM IS ON. PT DENIES NEEDS AT THIS TIME. CONTINUE TO MONITOR CLOSELY.
--- NOTE | 2020-05-29 19:28 | NUR ---
Report given oncoming nurse. Resting in bed. NO s/s of acute distress noted. Side rails upx2, call light within reach.
[2020-05-29] MEDS: CLONAZEPAM 0.5 MG TAB PO SCH (21:25)
[2020-05-30] VITALS (7 sets, daily range): BP systolic 103–131; BP diastolic 53–67
--- NOTE | 2020-05-30 01:26 | Progress Note ---
DATE: CONSULTING PHYSICIAN: Dr. Shubham Walker with Urology. SUBJECTIVE: The patient is lying supine in bed. Denies any chills or new complaints. No complaints of left shoulder pain or cough currently. PHYSICAL EXAMINATION: VITAL SIGNS: Temperature 99.2, T-max 100.9, heart rate 74, blood pressure 120/54, blood pressure subsequently 97/52 and then 102/62, respirations 18, and oxygen saturation 99% on room air. Intake and output 1560 mL in and 1900 mL out. GENERAL: Supine in bed. No acute distress. LUNGS: Clear to auscultation. Respirations even and unlabored. No supplemental oxygen. HEENT: EOMI. NECK: Supple. CARDIOVASCULAR: Regular rate and rhythm. No murmur. Normal saline infusing at 75 mL an hour into her peripheral IV. ABDOMEN: Bowel sounds positive. Soft, nontender. EXTREMITIES: No pitting edema. No signs of DVT. NEUROLOGICAL: GCS 15. Nonfocal. LABORATORY DATA: WBCs 12.36, hemoglobin 9.4, hematocrit 29, and platelets 551. Sodium 130, BUN 16, creatinine 0.8, estimated GFR greater than 60, calcium 8, phosphorus 2.0, magnesium 1.7, total protein 5.7, albumin 2.2. Coronavirus by PCR collected on 05/28 is still pending. On 05/27, catheterized urine final culture positive for Enterobacter cloacae and Enterococcus faecalis. Enterobacter cloacae is multidrug resistant and enterococcus faecalis is pansensitive, overall intermediate regarding Cipro, but Enterococcus faecalis is sensitive to Cipro. IMAGING STUDIES: Bilateral carotid Doppler ultrasound showed no evidence of significant carotid stenosis. Echocardiogram showed ejection fraction of 60% with trace pericardial effusion. ASSESSMENT AND PLAN: 1. Severe urinary tract infection, present on admission with. 2. Enterobacter cloacae and Enterococcus faecalis. Rocephin has been changed to Cipro. Urology following. 3. Severe sepsis due to urinary tract infection, present on admission. WBC is 12.3 (19.28). Platelets and neutrophils are also normalizing. Continue antibiotics. 4. Hypotension, likely due to #2 with history of hypertension. Blood pressure 102/62. Continue IV fluids and monitor. 5. Neurogenic bladder and urinary retention, indwelling Calle catheter. Urology following. Maintain Calle catheter for now. 6. Active left breast cancer. Continue on anastrozole. 7. Left footdrop, ambulatory dysfunction. PT eval and treat. 8. Acute hyponatremia. Sodium level 130 (128). Continue normal saline IV fluids at 75 mL an hour. 9. Syncope once on 05/26/2020, possible postural syncope. CT of the brain was negative. Bilateral carotid Doppler negative for carotid stenosis. Echocardiogram, acute ejection fraction 60%. The patient unable to stand well to tolerate orthostatic vital signs. 10. Prophylaxis. Pepcid and SCDs. Billing code [id number]. Time spent 35 minutes. Dictated by Quan Rios NP MD ROSALINO Curry/MODL /[id number]
[2020-05-30 06:04] LABS: BASOPHILS # (AUTO) 0.1 (0.0-0.1); BASOPHILS % 0.8 % (0.0-1.0); EOSINOPHILS # (AUTO) 1.1 (0.0-0.4); EOSINOPHILS % 10.8 % (0.0-6.0); HEMATOCRIT 28.4 % (34.2-44.1); HEMOGLOBIN 9.5 g/dL (12.0-16.0); LYMPHOCYTES # (AUTO) 1.1 (1.0-3.2); LYMPHOCYTES % 10.7 % (18.0-39.1); MEAN CORPUSCULAR HEMOGLOBIN 29.2 pg (28-32); MEAN CORPUSCULAR HGB CONC 33.5 g/dL (31-35); MEAN CORPUSCULAR VOLUME 87.4 fL (81-99); MONOCYTES # (AUTO) 1.3 (0.2-0.8); MONOCYTES % 12.7 % (4.4-11.3); NEUTROPHILS # (AUTO) 6.5 (2.1-6.9); NEUTROPHILS % 64.4 % (38.7-80.0); PLATELET COUNT 583 x10e3/uL (140-360); RED BLOOD COUNT 3.25 x10e6/uL (3.6-5.1); RED CELL DISTRIBUTION WIDTH 13.5 % (11.7-14.4)
[2020-05-30 06:21] LABS: ANION GAP 10.2 mmol/L (8-16); BLOOD UREA NITROGEN 15 mg/dL (7-26); BUN/CREATININE RATIO 22 (6-25); CALCIUM 7.9 mg/dL (8.4-10.2); CARBON DIOXIDE 23 mmol/L (22-29); CHLORIDE 102 mmol/L (98-107); CREATININE, SERUM 0.67 mg/dL (0.57-1.11); EST GLOMERULAR FILTRATION RATE > 60 ML/MIN (60-); GLUCOSE 99 mg/dL (74-118); MAGNESIUM 1.5 MG/DL (1.3-2.1); POTASSIUM 4.2 mmol/L (3.5-5.1); SODIUM 131 mmol/L (136-145)
[2020-05-30] MEDS: CIPROFLOXACIN 200 MG/D5W 100ML 100 ML IV SCH ×2 (08:57→20:53)
[2020-05-30] MEDS: FAMOTIDINE 20 MG/2 ML VIAL IV SCH ×2 (08:57→15:53)
[2020-05-30] MEDS: ASPIRIN 81 MG CHEW TAB PO SCH (08:57)
[2020-05-30] MEDS: DOCUSATE SODIUM 100 MG CAP PO SCH ×2 (08:57→15:51)
[2020-05-30] MEDS: ACETAMINOPHEN 325 MG TAB PO SCH ×3 (08:57→20:53)
[2020-05-30] MEDS: (Mirabegron (Myrbetriq) 50 MG) PO SCH (08:57)
--- NOTE | 2020-05-30 09:57 | NUR ---
Changed 18F aguilar catheter as ordered. Clear yellow urine draining . Alber PINON observed and assisted with insertion of catheter. Aguilar securement device in place.
--- NOTE | 2020-05-30 10:29 | Diagnostic Imaging Report ---
EXAM: CHEST 2 VIEWS DATE: 05/30/2020 10:00 AM INDICATION: Cough COMPARISON: 01/19/2020 FINDINGS: The trachea is midline. There are mild right greater than left basilar opacity suggestive of atelectasis. There is no evidence for large focal consolidation, pneumothorax, or significant volume pleural effusion. The cardiomediastinal silhouette is stable in appearance. Degenerative changes noted of the visualized spine. Partially visualized thoracolumbar fusion hardware noted. No acute osseous abnormality is identified. IMPRESSION: Bibasilar atelectasis. Otherwise, no acute cardiopulmonary process identified. Signed by: Dr. Asa Turcios MD on 05/30/2020 10:25 AM
[2020-05-30] MEDS ORDERED: MAGNESIUM SULFATE 2GM/50ML 50 ML IV ONE (14:45)
[2020-05-30] MEDS: SODIUM CHLORIDE 0.9% 1000ML 1,000 ML IV SCH ×2 (17:15→20:05)
--- NOTE | 2020-05-30 18:55 | NUR ---
Nutrition Screen Note RD Recommendation for Physician: -Consider liberalizing diet to Regular Plan of Care: RD following, monitoring for tolerance and adequacy Nutrition reason for involvement: Early LOS Primary Diagnose(s): severe sepsis PMH: UTIs, HTN, endometrial cancer, spinal fusion Ht: 63 in Wt: 100 lb BMI: 17.7 kg/m2 IBW: [address] Assessment: 05/30: 84 YOF admitted for severe sepsis, evaluated today for early LOS. Medical providers at bedside at time of attempted visits, unable to obtain hx from pt. No reported wt loss or poor intake on admit per MD notes. Pt with 50-100% meal intake since admit. No GI distress reported. Chart reviewed. Labs and meds reviewed. Will continue to monitor. Current Diet: Cardiac Malnutrition Evaluation (05/30/20) The patient does not meet criteria for a specified degree of malnutrition at this time. Will re-evaluate at follow-up as appropriate. ALTA to assess, will evaluate at f/u. Diet Education Needs Assessment: Diet education not indicated. Diet tolerance: tolerating po Nutrition Care Level: low Signed: Aleisha Norris RD, LD, [facility]
--- NOTE | 2020-05-30 19:03 | NUR ---
Report given to oncoming nurse of patient's status. Resting in bed. AAOX4 to time, person, place, situation. Respirations even and unlabored. Side rails upx2, call light within reach.
[2020-05-30] MEDS: CLONAZEPAM 0.5 MG TAB PO SCH (20:53)
[2020-05-31] VITALS: BP 131/66
[2020-05-31] MEDS: CLONAZEPAM 0.5 MG TAB PO SCH (00:20)
[2020-05-31] MEDS ORDERED: SODIUM PHOSPHATE 3 MMOL/ML INJ IV ONE (02:00)
[2020-05-31] MEDS ORDERED: MAGNESIUM SULFATE 2GM/50ML 50 ML IV ONE (02:00)
--- NOTE | 2020-05-31 02:42 | Progress Note ---
DATE: SUBJECTIVE: The patient is lying supine in bed. She states she has some head congestion and coughing since arriving, attributes that possibly to being tested for coronavirus with nasal swab. Admits to having some mild clear phlegm. Otherwise, minimal complaints. PHYSICAL EXAMINATION: VITAL SIGNS: Temperature 98.4, heart rate 64, blood pressure 107/61, respirations 18, and oxygen saturation 100%. GENERAL: Supine, in no acute distress. LUNGS: Clear. Respiratory pattern even and unlabored. HEENT: EOMI. NECK: Supple. CARDIOVASCULAR: Regular rate and rhythm. No murmur. Normal saline infusing at 75 mL into her peripheral IV. ABDOMEN: Bowel sounds positive. Soft, nontender. EXTREMITIES: With no pitting edema. No clubbing, cyanosis, or marked swelling. NEUROLOGICAL: GCS 15. Nonfocal. LABORATORY DATA: WBC is 10.01, hemoglobin 9.5, hematocrit 28.4, and platelets 583. Sodium 131, potassium 4.2, chloride 102, CO2 of 23, anion gap 10.2, BUN 15, creatinine 0.67, estimated GFR greater than 60, glucose 99, calcium 7.9, phosphorus 2.0, magnesium 1.5. Final urine culture and sensitivity showed Enterobacter cloacae and Enterococcus faecalis. Chest x-ray today showed bibasilar atelectasis, otherwise no acute cardiopulmonary process identified. Per official report, bilateral carotid Doppler ultrasound shown no evidence of significant carotid stenosis. Echocardiogram showed ejection fraction of 60% with trace pericardial effusion. ASSESSMENT AND PLAN: 1. Severe urinary tract infection with Enterobacter cloacae and Enterococcus faecalis, present on admission. Continue Cipro IV. The patient will likely be discharged tomorrow on oral Cipro. Urology following. 2. Severe sepsis due to urinary tract infection, present on admission. WBC 10.01 (12.3, 19.28). Continue Cipro. 3. Hypotension, likely due to severe sepsis due to urinary tract infection with history of hypertension. Blood pressure 107/61. Continue IV fluids and monitor. 4. Neurogenic bladder with urinary retention, indwelling Calle catheter. Urology following. Per documentation, the patient will be discharged with Calle catheter on oral Cipro. The patient will follow up with Dr. Walker in 3 weeks and have Calle catheter changed in office. 5. Active left breast cancer. Continue anastrozole. 6. Left footdrop, ambulatory dysfunction. Per documentation by physical therapist, the patient states she had back surgery in 2010 and progressively getting weaker, especially in lower extremities. The patient able to walk 10 plus 10 feet with rolling walker with minimal contact guard assist, needed minimum assistance for bed mobility and transfers. 7. Syncope once on 05/26/2020, possible postural syncope. CT of the brain was negative. Bilateral carotid Doppler ultrasound negative for carotid stenosis. Echocardiogram with ejection fraction 60%. No new reports of syncope. 8. Acute hyponatremia. Sodium level 131 (130, 128). Continue normal saline IV fluids. Monitor. 9. Acute hypophosphatemia. Phosphorus level 2.0. Sodium phosphate 10 mmol IV once. 10. Acute hypomagnesemia. Magnesium level 1.5. We will replete with magnesium sulfate 2 g IV once. Recheck level in the morning. 11. Atelectasis, incentive spirometry hourly while awake. 12. Prophylaxis, Pepcid and SCDs. Billing code 98294. Time spent 35 minutes. Dictated by Quan Rios NP MD ROSALINO Curry/MARGARITOL /[id number]
[2020-05-31 03:43] VITALS: BP 131/66
[2020-05-31 04:00] VITALS: BP 147/74
[2020-05-31 05:05] LABS: BASOPHILS # (AUTO) 0.1 (0.0-0.1); BASOPHILS % 0.8 % (0.0-1.0); EOSINOPHILS # (AUTO) 1.1 (0.0-0.4); EOSINOPHILS % 13.2 % (0.0-6.0); HEMATOCRIT 29.4 % (34.2-44.1); HEMOGLOBIN 9.7 g/dL (12.0-16.0); LYMPHOCYTES # (AUTO) 1.6 (1.0-3.2); LYMPHOCYTES % 18.3 % (18.0-39.1); MEAN CORPUSCULAR HEMOGLOBIN 30.2 pg (28-32); MEAN CORPUSCULAR VOLUME 91.6 fL (81-99); MONOCYTES # (AUTO) 1.4 (0.2-0.8); MONOCYTES % 16.1 % (4.4-11.3); NEUTROPHILS # (AUTO) 4.4 (2.1-6.9); PLATELET COUNT 493 x10e3/uL (140-360); RED BLOOD COUNT 3.21 x10e6/uL (3.6-5.1)
[2020-05-31 05:30] LABS: ANION GAP 10.6 mmol/L (8-16); BLOOD UREA NITROGEN 16 mg/dL (7-26); BUN/CREATININE RATIO 20 (6-25); CARBON DIOXIDE 25 mmol/L (22-29); CHLORIDE 103 mmol/L (98-107); CREATININE, SERUM 0.81 mg/dL (0.57-1.11); EST GLOMERULAR FILTRATION RATE > 60 ML/MIN (60-); GLUCOSE 94 mg/dL (74-118); MAGNESIUM 2.9 MG/DL (1.3-2.1); PHOSPHORUS 2.2 MG/DL (2.3-4.7); POTASSIUM 4.6 mmol/L (3.5-5.1); SODIUM 134 mmol/L (136-145)
[2020-05-31] MEDS ORDERED: SODIUM PHOSPHATE 10 MMOL in SODIUM CHLORIDE 0.9% 100 ML IV ONE (06:00)
--- NOTE | 2020-05-31 06:58 | NUR ---
RECEIVED BEDSIDE SHIFT REPORT FROM OFF GOING NURSE. PATIENT IS IN STABLE CONDITION, IV LINE PATENT. CALL LIGHT WITHIN REACH. BED IN THE LOWEST POSITION. BED ALARM ON.
[2020-05-31] MEDS ORDERED: SODIUM PHOSPHATE 10 MMOL in SODIUM CHLORIDE 0.9% 250ML 250 ML IV ONE (07:15)
[2020-05-31] MEDS: (Mirabegron (Myrbetriq) 50 MG) PO SCH (07:50)
[2020-05-31 08:34] VITALS: BP 143/70
[2020-05-31] MEDS: ACETAMINOPHEN 325 MG TAB PO SCH (08:37)
[2020-05-31] MEDS: ASPIRIN 81 MG CHEW TAB PO SCH (08:37)
[2020-05-31] MEDS: DOCUSATE SODIUM 100 MG CAP PO SCH (08:37)
[2020-05-31] MEDS: FAMOTIDINE 20 MG/2 ML VIAL IV SCH (08:37)
[2020-05-31] MEDS: CIPROFLOXACIN 200 MG/D5W 100ML 100 ML IV SCH (08:37)
[2020-05-31] MEDS: SODIUM CHLORIDE 0.9% 1000ML 1,000 ML IV SCH (08:40)
[2020-05-31] MEDS ORDERED: CIPRO500 MG PO (09:04)
--- NOTE | 2020-05-31 10:49 | NUR ---
Spoke to pt at bedside. Pt states she has been mainly wheelchair bound. Has all the equipment needed at home. Has transfer wheelchair, standard wheelchair, walker, bsc, transfer board. Also states that she lives alone but has a WORKPLACE RELATIONS ADVISER available to help her. Pt currently has home health with [facility] and would like to continue using them. Choice letter signed. Copy given to pt. Informed pt that resumption order will be faxed to today and asked her to call them if she does not hear from them within 24 hrs of discharge. Discussed IMM with pt. She verbalized understanding and signed copy. Copy given to pt. Signed copies of choice letter and IMM placed in chart. CM called and spoke to Missy in office and verified that pt is currently on service with them. Informed her of discharge for today. Home Health order and clinicals faxed to [facility] at [phone] / .
[2020-05-31 11:16] VITALS: BP 137/47
--- NOTE | 2020-05-31 11:59 | Discharge Summary ---
CONSULTING PHYSICIAN: Dr. Shubham Walker. CHIEF COMPLAINT: Fever. HISTORY OF PRESENT ILLNESS: The patient is an 84-year-old female with indwelling Calle catheter that has had a fever greater than 100 degrees at home. She had a history of UTIs, but just finished antibiotics for UTI and had called Dr. Walker's office, subsequently referred to the emergency department for further evaluation. Per the emergency department physician's note, the patient took Tylenol prior to arrival to the hospital, had a syncopal episode where she was in a wheelchair and eyes rolled back into the back of her head. She was seen by Dr. Mendez in the ER and has been on heparin 81 mg. Denied hitting her head with the collapse. Please see history and physical for past medical, surgical, family, and social history. ALLERGIES: SHE HAS AN ALLERGY TO OXYBUTYNIN. ADMITTING DIAGNOSES: 1. Severe urinary tract infection, POA, with a history of urinary tract infections. 2. Severe sepsis due to urinary tract infection, POA. 3. Hypotension, likely due to #2 with history of hypertension. 4. Neurogenic bladder with urinary retention, indwelling Calle catheter. 5. Active left breast cancer. 6. Left footdrop, ambulatory dysfunction. 7. Acute hyponatremia. 8. Syncope once on 05/26/2020. DISCHARGE DIAGNOSES: 1. Severe urinary tract infection with Enterobacter cloacae and Enterococcus faecalis, POA. 2. Status post severe sepsis due to urinary tract infection, POA. 3. Recent hypotension, likely due to severe sepsis from the urinary tract infection, hypertension. 4. Neurogenic bladder with urinary retention, indwelling Calle catheter. 5. Active left breast cancer. 6. Left footdrop, ambulatory dysfunction. 7. Syncope once on 05/26/2020, possible postural syncope. 8. Acute hyponatremia, improving. 9. Acute hypophosphatemia, improving. 10. Acute hypomagnesemia, improving. 11. Atelectasis. The patient was on Cipro IV and will be discharged on oral Cipro as per prescription written by Dr. Shubham Walker 250 mg one tablet p.o. b.i.d. for 10 days. WBCs have improved considerably. WBC 8.58 today. Please see H and P for admitting lab results. Hypotension with blood pressure approximately 105/60, is improved to 147/74 today. Temperature 97.3, heart rate 80, respirations 20, oxygen saturation 99% this morning. Per Urology documentation, the patient can be discharged home with Calle catheter in place on oral Cipro and the patient will follow up with Dr. Walker in his office in 3 weeks and have the Calle catheter changed in the office. Anastrozole was continued for the breast cancer during her stay. The patient is ambulatory with rolling walker per physical therapy note with minimal contact guard assist, needed minimum assistance for bed mobility and transfers. Regarding the syncope that she had on May 26, a CT of the brain was negative. Bilateral carotid Doppler ultrasounds were negative for carotid stenosis. The echocardiogram showed ejection fraction of 60%, and now she has no new reports of syncope. This may have been due to her infection from the UTI. Sodium level today 134 (131) had been 128, phosphorus level was low at 2.0. This morning, phosphorus near normal at 2.2. Since sodium is still slightly low at 134 and phosphorus still a bit low at 2.2, we will give an additional sodium phosphate prior to discharge. Magnesium level this morning artificially elevated at 2.9, as this was likely drawn too close when magnesium was repleted. The patient has been using incentive spirometry for atelectasis. Hemoglobin 9.7 and platelets 493. Otherwise, labs much improved. Her BUN 16, creatinine 0.81, and estimated GFR greater than 60. The patient to continue cardiac diet. Follow up with her PCP, Dr. Key in 1 to 2 weeks. Follow up with Dr. Shubham Walker in 3 weeks as aforementioned. Activity level as tolerated. The patient understands and agrees with discharge plan. No questions at this point. The patient was seen by Dr. Ross with Urology for Dr. Walker this morning and agrees with discharge plan. Dictated by Quan Rios, HERNANDEZ MD ROSALINO Curry/SHAYLEE /[id number]
[2020-05-31 12:00] VITALS: BP 132/56
[2020-05-31] MEDS ORDERED: ONDANSETRON HCL 4 MG ORAL DISINTEGRATING TAB PO PRN (12:45)
--- NOTE | 2020-05-31 15:15 | NUR ---
RECEIVED DC ORDER FROM HERNANDEZ RDZ. PATIENT IS IN STABLE CONDITION. IV LINE TO RIGHT FOREARM DISCONTINUED WITH TIP INTACT, PRESSURE APPLIED TO SITE, NO BLEEDING NOTED. DISCHARGE TEACHING PROVIDED TO PATIENT, SHE VERBALIZED UNDERSTANDING. TRANSITION OF CARE FOLDER ON HAND WITH DC PAPERWORK AND PRESCRIPTIONS ON HAND. ALL PERSONAL ITEMS ON HAND INCLUDING PERSONAL WALKER/WHEELCHAIR. PATIENT ACCOMPANIED TO PRIVATE AUTO VIA OWN WHEELCHAIR.
== END 2020-05-31 15:15 | disposition home or self-care (01) | DRG 698 ==
LOC: ER 17:17 → ERHOLD 22:03 → MED/SURG2 23:17
PROVIDERS: ADMIT Internal Medicine; ATTEND Internal Medicine
DX: T83.511A Infection and inflammatory reaction due to indwelling urethral catheter, initial encounter (principal); A41.9 Sepsis, unspecified organism; R65.20 Severe sepsis without septic shock; E87.1 Hypo-osmolality and hyponatremia; N39.0 Urinary tract infection, site not specified; N31.9 Neuromuscular dysfunction of bladder, unspecified; M21.372 Foot drop, left foot; C50.919 Malignant neoplasm of unspecified site of unspecified female breast; E83.42 Hypomagnesemia; E83.39 Other disorders of phosphorus metabolism; R33.9 Retention of urine, unspecified
CPT/HCPCS: 36415; 70450; 71046; 80048; 80053; 80061; 81001; 82550; 82553; 83605; 83735; 84100; 84484; 85025; 85610; 85730; 87040; 87086; 87186; 93005; 93306; 93880; 97139; 99284; J0696; J3475; J7030; J7050; U0002

== ENCOUNTER → 2020-09-04 | Day surgery (SDC) | payer MEDICARE, OTHER ==
[2020-08-30 14:31] LABS: BASOPHILS # (AUTO) 0.1 (0.0-0.1); BASOPHILS % 0.9 % (0.0-1.0); EOSINOPHILS # (AUTO) 0.3 (0.0-0.4); EOSINOPHILS % 3.4 % (0.0-6.0); HEMATOCRIT 34.6 % (34.2-44.1); HEMOGLOBIN 11.3 g/dL (12.0-16.0); LYMPHOCYTES # (AUTO) 1.3 (1.0-3.2); LYMPHOCYTES % 15.2 % (18.0-39.1); MEAN CORPUSCULAR HEMOGLOBIN 30.1 pg (28-32); MEAN CORPUSCULAR HGB CONC 32.7 g/dL (31-35); MONOCYTES # (AUTO) 0.5 (0.2-0.8); MONOCYTES % 5.8 % (4.4-11.3); NEUTROPHILS # (AUTO) 6.6 (2.1-6.9); NEUTROPHILS % 74.4 % (38.7-80.0); PLATELET COUNT 426 x10e3/uL (140-360); RED BLOOD COUNT 3.76 x10e6/uL (3.6-5.1); RED CELL DISTRIBUTION WIDTH 15.1 % (11.7-14.4)
[2020-08-30 14:51] LABS: ANION GAP 12.8 mmol/L (8-16); BLOOD UREA NITROGEN 20 mg/dL (7-26); BUN/CREATININE RATIO 29 (6-25); CALCIUM 8.7 mg/dL (8.4-10.2); CARBON DIOXIDE 25 mmol/L (22-29); CHLORIDE 99 mmol/L (98-107); EST GLOMERULAR FILTRATION RATE > 60 ML/MIN (60-); GLUCOSE 104 mg/dL (74-118); POTASSIUM 3.8 mmol/L (3.5-5.1); SODIUM 133 mmol/L (136-145)
[~2020-09-04] MED LIST changes: +ALENDRONATE SOD10 MG; +ARIMIDEX1 MG PO; +BONIVA150 MG PO; +DEXAMETHASONE SOD PHOS INJ 4 MG/ML VIAL ONE; +DICYCLOMINE HCL10 MG PO; +FUROSEMIDE40 MG PO; +LIDOCAINE HCL 2% LOCAL INJ 5 ML SDV VIAL INJ ONE; +MULTIVITAMINS1 EAC7 PO; +ONDANSETRON HCL INJ 2MG/ML 2ML 2 MG/ML VIAL ONE; +PIPER-TAZ 3.375 GM 50 ML ONE; +PROPOFOL IV EMULSION 10 MG/ML 20 ML VIAL ONE; +SEVOFLURANE INHAL SOLN 250 ML PEN BTL ONE; +SPIRONOLACTONE25 MG PO; +TURMERIC1 GM PO; +VITAMIN D PO
[2020-09-04 12:28] VITALS: BP 140/76
== END | disposition home or self-care (01) ==
LOC: OR 09:29
PROVIDERS: ATTEND Urology
DX: N30.20 Other chronic cystitis without hematuria (principal); N21.0 Calculus in bladder; N39.41 Urge incontinence; N31.9 Neuromuscular dysfunction of bladder, unspecified; N13.30 Unspecified hydronephrosis; N81.10 Cystocele, unspecified; N81.6 Rectocele; N95.2 Postmenopausal atrophic vaginitis; N13.8 Other obstructive and reflux uropathy; N28.83 Nephroptosis; I10 Essential (primary) hypertension; I34.1 Nonrheumatic mitral (valve) prolapse; R00.1 Bradycardia, unspecified; R60.0 Localized edema; F41.9 Anxiety disorder, unspecified; F32.9 Major depressive disorder, single episode, unspecified; Z88.8 Allergy status to other drugs, medicaments and biological substances; Z01.810 Encounter for preprocedural cardiovascular examination; Z01.812 Encounter for preprocedural laboratory examination; Z20.828 Contact with and (suspected) exposure to other viral communicable diseases; Z85.89 Personal history of malignant neoplasm of other organs and systems; Z87.891 Personal history of nicotine dependence; Z86.718 Personal history of other venous thrombosis and embolism; Z80.52 Family history of malignant neoplasm of bladder
CPT/HCPCS: 36415; 51040; 52310; 74420; 80048; 85025; 88300; 93005; C1758; J1100; J2001; J2405; J2543; J2704; U0002